=== PATIENT | female | born 1995 | race Caucasian/White ===

== ENCOUNTER → 2017-12-25 21:05 | Outpatient (CLI) | payer MEDICAID, SELFPAY | PROVIDERS: Visit Provider Obstetrics & Gynecology | DX: R30.0 Dysuria (principal); R35.0 Frequency of micturition; R39.15 Urgency of urination | CPT/HCPCS: 87077; 87086; 87088; 87186 ==

== ENCOUNTER 2018-01-02 17:15 | Outpatient (CLI) | payer MEDICAID, SELFPAY ==
[2018-01-02 17:41] VITALS: BMI 45.1
[2018-01-02] MEDS: Acetaminophen 500 MG Tablet 1000 MG PO (18:38)
[2018-01-02] MEDS: 0.9% NaCl Peripheral Flush Adult/Peds IV (18:39)
--- NOTE | 2018-01-03 07:52 | OB.TRI.HP_ITS ---
History of Present Illness Date of Service: 01/02/18 Was patient seen by the physician?: No Reason For Visit: DECREASED MOVEMENT Date of Service: 01/02/18 Final KALLIE: 04/02/18 Gestational age: 27 Weeks and 1 Days History of Present Illness: 22 yo female at 27 1/7 wk presents for NST and evaluation after noting a bruise on abdomen (struck by resident's wheelchair at work -- assisted -- earlier in day) AND also C/O decreased to no movement noted. States some cramping noted beginning at 1600. States currently being treated for a bladder infection also. O negative blood type. Home Medications Medication Instructions Recorded Prenatabs FA 1 tab PO DAILY 01/02/18 Allergies amoxicillin [From Augmentin] Allergy (Verified 01/02/18 18:00) Rash clavulanic acid [From Augmentin] Allergy (Verified 01/02/18 18:00) Rash peanut Allergy (Verified 01/02/18 18:02) Other states she had an off brand of peanut butter once that made her throat feel funny but does not avoid peanuts or peanut butter Physical Exam Cervix Dilation (cm): 0 Station: -3 Effacement (%): 0 NST - FHR Rate Baby A Baseline: 130-140 for most some 150s with accels to 165 Variability:: Minimal Accelerations:: 15 x 15 Decelerations:: None NST Reactive:: Yes, Appropriate for gestational age FHR Category:: Category I Uterine Activity:: rare UC noted. Impression/Plan 27 1/7 wk s/p abdominal trauma, abrasion to abdominal skin NST reactive, reassuring No regular UCs O negative Antibody screen negative. RhoGAM 300 mcg IM x one given RTO as planned for next ofc visit Tylenol for pain. Comfort measures for skin and abdominal wall/ muscle pain.
== END 2018-01-02 21:50 | disposition home or self-care (01) ==
LOC: WPOUT 17:40 → WP 17:40
PROVIDERS: Visit Provider Obstetrics & Gynecology
DX: O26.892 Other specified pregnancy related conditions, second trimester (principal); S30.811A Abrasion of abdominal wall, initial encounter; W20.8XXA Other cause of strike by thrown, projected or falling object, initial encounter; Y93.89 Activity, other specified; Y92.129 Unspecified place in nursing home as the place of occurrence of the external cause; Y99.0 Civilian activity done for income or pay; Z3A.27 27 weeks gestation of pregnancy
CPT/HCPCS: 36415; 59025; 59050; 85461; 86850; 86900; 90384; 96372; 99218; A4216; G0378; J2790

== ENCOUNTER → 2018-01-08 13:04 | Outpatient (CLI) | payer MEDICAID, SELFPAY ==
[2018-01-08 15:50] LABS: Hematocrit 35.2 % (37-47); Hemoglobin 12.4 g/dl (12.0-15.0); Mean Corp Hgb Conc 35.2 g/gl (32-36); Mean Corpuscular Hgb 30.6 pg (27.0-32.0); Mean Corpuscular Volume 86.9 fL (81-99); Mean Platelet Vol. 9.8 fl (6.2-12.0); Platelet Count 224 K/mm3 (150-450); RBC Distribution Width CV 13.1 % (11.6-14.6); RBC Distribution Width SD 40.2 fl (35.1-43.9); Red Blood Count 4.05 M/mm3 (4.2-5.4); White Blood Count 9.8 K/mm3 (4.4-11.0)
[2018-01-08 15:57] LABS: Glucose Challenge Gest 1H 50g 106 mg/dL (70-140)
[2018-01-08 16:32] LABS: Scan Indicated on CBC? Y/N NO
== END ==
PROVIDERS: Visit Provider Obstetrics & Gynecology
DX: Z34.83 Encounter for supervision of other normal pregnancy, third trimester (principal)
CPT/HCPCS: 36415; 82950; 85027

== ENCOUNTER 2018-01-17 07:30 | Outpatient (CLI) | payer MEDICAID, SELFPAY ==
[2018-01-17 07:55] VITALS: BMI 44.4
[2018-01-17] MEDS: Dextrose 5%-Lactated Ringers 1,000 ML 500 ML IV (08:45)
[2018-01-17] MEDS: proMETHazine 25 MG/ML Syringe 12.5 MG IV (08:45)
[2018-01-17 08:53] LABS: Hemoglobin 12.5 g/dl (12.0-15.0); Mean Corp Hgb Conc 33.8 g/gl (32-36); Mean Corpuscular Hgb 29.7 pg (27.0-32.0); Mean Corpuscular Volume 87.9 fL (81-99); Mean Platelet Vol. 9.3 fl (6.2-12.0); Platelet Count 214 K/mm3 (150-450); RBC Distribution Width CV 13.5 % (11.6-14.6); RBC Distribution Width SD 43.2 fl (35.1-43.9); Red Blood Count 4.21 M/mm3 (4.2-5.4); Scan Indicated on CBC? Y/N NO; White Blood Count 8.6 K/mm3 (4.4-11.0)
[2018-01-17 09:10] LABS: ALB/GLOB Ratio 0.8 RATIO (0.9-2.4); AST(SGOT) 17 U/L (15-37); Alanine Aminotransfer ALT/SGPT 17 U/L (13-56); Alkaline Phosphatase 66 U/L (45-117); Anion Gap 10 (5-15); BUN 6 mg/dL (7-18); BUN/Creat Ratio 11.4 RATIO (10-20); Calcium,Total 8.7 mg/dL (8.5-10.1); Chloride 107 mmol/L (98-107); Creatinine, Serum 0.53 mg/dL (0.55-1.02); EST Glomerular Filtration Rate 152 mL/min (>60); Est Glom Filt Rate - Afr Amer 184 mL/min (>60); Estimated Creatinine Clearance 142.56 ml/min; Globulin 3.8 g/dL (2.2-4.2); Glucose 87 mg/dL (74-106); Potassium 3.9 mmol/L (3.5-5.1); Protein, Total 6.8 g/dL (6.4-8.2); Sodium Level 139 mmol/L (136-145)
[2018-01-17] MEDS: Dextrose 5%-Lactated Ringers 1,000 ML 200 ML IV (10:15)
--- NOTE | 2018-01-17 13:27 | OB.TRI.NOTE ---
History of Present Illness Date of Service: 01/17/18 Was patient seen by the physician?: Yes Reason For Visit: DECREASED MOVEMENT, N/V/D Date of Service: 01/17/18 Final KALLIE: 04/02/18 Final KALLIE Source: US <20 weeks Gestational age: 29 Weeks and 2 Days History of Present Illness: 22 yo female at 29 2/7 wk with h/o prior C/S delivery. called to state Dec to no FM since last night. Also then c/o N/V/D and not able to tolerate much since last pm. Stayed home from work today and called in with concerns Advised to come in for evaluation and EFM. ADDENDUM: S/O also states diarrhea since eating [employer]. Home Medications Medication Instructions Recorded Prenatabs FA 1 tab PO DAILY 01/02/18 Allergies amoxicillin [From Augmentin] Allergy (Verified 01/02/18 18:00) Rash clavulanic acid [From Augmentin] Allergy (Verified 01/02/18 18:00) Rash peanut Allergy (Verified 01/02/18 18:02) Other states she had an off brand of peanut butter once that made her throat feel funny but does not avoid peanuts or peanut butter NST - FHR Rate Baby A Baseline: 130-140s avg variability. Accels to 160-170 Variability:: Moderate Accelerations:: 15 x 15 Decelerations:: Variable - quick , lasting less than 10 sec , to 120s NST Reactive:: Yes, Appropriate for gestational age FHR Category:: Category I Uterine Activity:: Rare, irregular UCs noted Impression/Plan 29 2/7 wk EGA DEC FM -- NST reassuring and reactive, appropriate for EGA N/V/D -- likely viral gastroenteritis with onset yesterday -- Labs: CBC wnl, and CMP wnl for with K+ wnl IV fluids for hydration, IV antiemetics Imodium for diarrhea and related cramping. Continue with plan of care until worst of sx resolves and able to tolerate po
[2018-01-17] MEDS: Loperamide 2 MG Capsule PO (13:59)
[2018-01-17 14:13] LABS: Bacteria 0 SEEN /hpf (None Seen); Mucous, Urine 0 SEEN /hpf (<or=2+); Red Blood Cells-Urine 0 SEEN /hpf (0-5)
[2018-01-17 14:16] LABS: Color, Urine Yellow (Yellow); Glucose, Dipstick Normal (Normal); Ketone-Dipstick Negative (Negative); Leukocyte Esterase-Dipstick Negative /ul (Negative); Nitrite-Dipstick Negative (Negative); Occult Blood-Urine Negative /ul (Negative); Protein-Dipstick Negative (Negative); Specific Gravity, Urine 1.015 (1.002-1.030); Urine Bilirubin Dipstick Negative (Negative); Urine Clarity Clear (Clear); Urine Urobilinogen Normal (Normal); Urine pH 6.5 (5.0 - 8.0)
[2018-01-17 14:21] LABS: Squamous Epithelial Cells - UA 0-5 SEEN /hpf (5-10); White Blood Cells 0-5 SEEN /hpf (0-5)
== END 2018-01-17 16:20 | disposition home or self-care (01) ==
LOC: WPOUT 07:36 → WP 07:37
PROVIDERS: Visit Provider Obstetrics & Gynecology
DX: O36.8130 Decreased fetal movements, third trimester, not applicable or unspecified (principal); Z3A.29 29 weeks gestation of pregnancy
CPT/HCPCS: 96361; 96374; 59025; 59050; 80053; 81001; 85027; 99218; G0378

== ENCOUNTER → 2018-02-02 16:13 | Outpatient (CLI) | payer MEDICAID, SELFPAY | PROVIDERS: Visit Provider Obstetrics & Gynecology | DX: R19.7 Diarrhea, unspecified (principal) | CPT/HCPCS: 87493 ==

== ENCOUNTER 2018-02-11 20:20 | Outpatient (CLI) | payer MEDICAID, SELFPAY ==
[2018-02-11 20:31] VITALS: BMI 45.5
[2018-02-11] MEDS: 0.9% Saline Lock 10 ML Syringe IV (21:00)
[2018-02-11 21:20] LABS: Red Blood Cells-Urine 0 SEEN /hpf (0-5)
[2018-02-11 21:21] LABS: Hematocrit 35.2 % (37-47); Hemoglobin 12.2 g/dl (12.0-15.0); Mean Corp Hgb Conc 34.7 g/gl (32-36); Mean Corpuscular Volume 86.5 fL (81-99); Mean Platelet Vol. 9.4 fl (6.2-12.0); Platelet Count 221 K/mm3 (150-450); RBC Distribution Width CV 13.5 % (11.6-14.6); RBC Distribution Width SD 42.7 fl (35.1-43.9); Red Blood Count 4.07 M/mm3 (4.2-5.4); Scan Indicated on CBC? Y/N NO; White Blood Count 9.3 K/mm3 (4.4-11.0)
[2018-02-11 21:22] LABS: Color, Urine Yellow (Yellow); Glucose, Dipstick Normal (Normal); Ketone-Dipstick 5 mg/dl (Negative); Leukocyte Esterase-Dipstick 25 /ul (Negative); Nitrite-Dipstick Negative (Negative); Occult Blood-Urine 10 /ul (Negative); Protein-Dipstick Negative (Negative); Urine Bilirubin Dipstick Negative (Negative); Urine Clarity Cloudy (Clear); Urine Urobilinogen Normal (Normal); Urine pH 6.5 (5.0 - 8.0)
[2018-02-11 21:36] LABS: Yeast-Urine 1+ /hpf (None Seen)
[2018-02-11 21:37] LABS: Mucous, Urine RARE /hpf (<or=2+)
[2018-02-11 21:38] LABS: Squamous Epithelial Cells - UA 5-10 SEEN /hpf (5-10); White Blood Cells 5-10 SEEN /hpf (0-5)
[2018-02-11 21:39] LABS: Bacteria 1+ /hpf (None Seen)
[2018-02-11] MEDS: proMETHazine 25 MG Tablet PO (21:41)
[2018-02-11] MEDS: Acetaminophen/Butalbital/Caffe 1 Tablet 2 TABLET PO (21:41)
[2018-02-11 21:57] LABS: ALB/GLOB Ratio 0.7 RATIO (0.9-2.4); AST(SGOT) 21 U/L (15-37); Alanine Aminotransfer ALT/SGPT 19 U/L (13-56); Albumin, Serum 2.9 g/dL (3.2-5.0); Alkaline Phosphatase 93 U/L (45-117); Anion Gap 9 (5-15); BUN 10 mg/dL (7-18); BUN/Creat Ratio 17.2 RATIO (10-20); Calcium,Total 8.8 mg/dL (8.5-10.1); Chloride 108 mmol/L (98-107); Creatinine, Serum 0.58 mg/dL (0.55-1.02); EST Glomerular Filtration Rate 136 mL/min (>60); Est Glom Filt Rate - Afr Amer 164 mL/min (>60); Estimated Creatinine Clearance 129.15 ml/min; Glucose 92 mg/dL (74-106); Potassium 3.4 mmol/L (3.5-5.1); Protein, Total 6.9 g/dL (6.4-8.2); Sodium Level 139 mmol/L (136-145)
--- NOTE | 2018-02-12 08:08 | OB.TRI.NOTE ---
History of Present Illness Date of Service: 02/11/18 Was patient seen by the physician?: Yes Reason For Visit: HEADACHE Date of Service: 02/11/18 Final KALLIE: 04/02/18 Final KALLIE Source: US <20 weeks Gestational age: 32 Weeks and 6 Days History of Present Illness: 23yo female t 32 6/7 wk EGA presents with PRIDE. States PRIDE present for FOUR DAYS. Called in on 02/10/18 with CC of PRIDE and given RX for fioricet Took that and slept Sat night. Called in on 02/11/18 with CC of PRIDE that came on later in day. Was gone when she got up... Advised to take Fioricet and to stay well hydrated then. Presents then at 8-9 pm with CC of PRIDE. States last dose of Fioricet at approx 1500 today . Has not taken any more as concerned she had taken too much. No BP problems this , and h/o prior term delivery by C/S. Also c/o edema of feet, upper abdominal pain, blurry vision, etc. Advised nurse that although BP wnl: needs bloodwork for PIH and UA. Home Medications Medication Instructions Recorded Prenatabs FA 1 tab PO DAILY 01/02/18 Acetaminophen/Butalbital/Caffe 1 - 2 tablet PO Q4H PRN PRN 02/11/18 [Fioricet] Allergies amoxicillin [From Augmentin] Allergy (Verified 01/02/18 18:00) Rash clavulanic acid [From Augmentin] Allergy (Verified 01/02/18 18:00) Rash peanut Allergy (Verified 01/02/18 18:02) Other states she had an off brand of peanut butter once that made her throat feel funny but does not avoid peanuts or peanut butter Physical Exam Vitals: BP 132/83 General: Alert, Oriented x3, Cooperative, No apparent distress Abdomen: Gravid Extremities:: Other - Tr edema bilateral ankles. NST - FHR Rate Baby A Baseline: 120-130s with mod variability. accels to 160s Variability:: Moderate Accelerations:: 15 x 15 Decelerations:: None NST Reactive:: Yes, Appropriate for gestational age FHR Category:: Category I Uterine Activity:: irregular UCs, irritability. Impression/Plan 32 6/7 wk EGA . CC of PRIDE PIH labs all WNL, and no proteinuria PRIDE bitemporal and nuchal/occipital Fioricet and phenergan given. States still not feeling well. Offered OxyIR but with understanding re potential 5 d stay for infant after with ARNOL scoring Declined narcotic Home. Benadryl and rest Reviewed comfort measures for possible stress PRIDE and musculoskeletal source of PRIDE. RTO for ofc appt as scheduled on 02/12/18
== END 2018-02-11 22:17 | disposition home or self-care (01) ==
LOC: WPOUT 20:25 → WP 20:26
PROVIDERS: Visit Provider Obstetrics & Gynecology
DX: O26.893 Other specified pregnancy related conditions, third trimester (principal); R51 Headache; Z3A.32 32 weeks gestation of pregnancy
CPT/HCPCS: 36415; 59025; 59050; 80053; 81001; 85027; 87077; 87086; 87088; 87186; 99218; A4216; G0378

== ENCOUNTER → 2018-03-05 16:37 | Outpatient (CLI) | payer MEDICAID, SELFPAY ==
--- NOTE | 2018-03-05 16:37 | DT_ITS ---
This patient was seen during an EMR downtime February 26, 2018 - March 05, 2018. This patient may have a combination of paper and electronic documentation or all paper documentation. All documentation is viewable within the e-chart portion of codetag for each patient visit.
[2018-03-05 19:08] LABS: Group B Strep DNA By PCR POSITIVE (Negative); Probe Check PASS
== END ==
PROVIDERS: Visit Provider Obstetrics & Gynecology
DX: Z36.85 Encounter for antenatal screening for Streptococcus B (principal)
CPT/HCPCS: 87653

== ENCOUNTER → 2018-03-13 16:40 | Outpatient (CLI) | payer MEDICAID, SELFPAY ==
[2018-03-13 17:19] LABS: Hematocrit 36.7 % (37-47); Hemoglobin 12.6 g/dl (12.0-15.0); Mean Corp Hgb Conc 34.3 g/gl (32-36); Mean Corpuscular Hgb 29.8 pg (27.0-32.0); Mean Corpuscular Volume 86.8 fL (81-99); Mean Platelet Vol. 10.1 fl (6.2-12.0); Platelet Count 228 K/mm3 (150-450); RBC Distribution Width CV 13.8 % (11.6-14.6); Red Blood Count 4.23 M/mm3 (4.2-5.4); White Blood Count 8.7 K/mm3 (4.4-11.0)
[2018-03-13 17:20] LABS: Scan Indicated on CBC? Y/N NO
[2018-03-13 17:32] LABS: International Normalized Ratio 0.9; Partial Thromboplast Time 27.3 Seconds (24.1-36.2); Prothrombin Time (Protime)PT. 12.6 SECONDS (11.7-14.9)
[2018-03-13 17:54] LABS: AST(SGOT) 29 U/L (15-37); Alanine Aminotransfer ALT/SGPT 26 U/L (13-56); Uric Acid 5.1 mg/dL (2.6-6.0)
== END ==
PROVIDERS: Visit Provider Obstetrics & Gynecology
DX: O13.9 Gestational [pregnancy-induced] hypertension without significant proteinuria, unspecified trimester (principal); Z3A.00 Weeks of gestation of pregnancy not specified
CPT/HCPCS: 36415; 84450; 84460; 84550; 85027; 85610; 85730

== ENCOUNTER → 2018-03-15 09:32 | Outpatient (CLI) | payer MEDICAID, SELFPAY ==
[2018-03-15 10:08] LABS: Microalbumin,Random Urine 8.3 mg/L (NO RANGE EST.); Microalbumin:Creatinine Ratio 11.1 mg/g CRE (<30 mg/g CRE)
[2018-03-15 12:58] LABS: 24HR. UA Prot. Total Volume 2250 mL; Urine Protein (24 Hour) 15.2 mg/dL (<11.9)
== END ==
PROVIDERS: Visit Provider Obstetrics & Gynecology
DX: O24.419 Gestational diabetes mellitus in pregnancy, unspecified control (principal); Z3A.00 Weeks of gestation of pregnancy not specified
CPT/HCPCS: 81050; 82043; 82570; 84156

== ENCOUNTER 2018-03-18 04:10 | Inpatient (IN) | payer MEDICAID, SELFPAY ==
[2018-03-18] VITALS (33 sets, daily range): BP systolic 104–156; BP diastolic 51–140; PULSE 72–106; RESP 14–24; TEMP 35.6–37.2; O2SAT 95–100; BMI 47.1
[2018-03-18 01:11] LABS: Bacteria 0 SEEN /hpf (None Seen); Mucous, Urine 0 SEEN /hpf (<or=2+); Red Blood Cells-Urine 0 SEEN /hpf (0-5); White Blood Cells 0 SEEN /hpf (0-5)
[2018-03-18 01:13] LABS: Hematocrit 35.6 % (37-47); Hemoglobin 12.5 g/dl (12.0-15.0); Mean Corp Hgb Conc 35.1 g/gl (32-36); Mean Corpuscular Hgb 30.3 pg (27.0-32.0); Mean Corpuscular Volume 86.2 fL (81-99); Mean Platelet Vol. 10.7 fl (6.2-12.0); Platelet Count 228 K/mm3 (150-450); RBC Distribution Width CV 13.5 % (11.6-14.6); RBC Distribution Width SD 41.5 fl (35.1-43.9); Red Blood Count 4.13 M/mm3 (4.2-5.4); Scan Indicated on CBC? Y/N NO; White Blood Count 10.6 K/mm3 (4.4-11.0)
[2018-03-18 01:15] LABS: Color, Urine Yellow (Yellow); Glucose, Dipstick Normal (Normal); Ketone-Dipstick Negative (Negative); Leukocyte Esterase-Dipstick Negative /ul (Negative); Nitrite-Dipstick Negative (Negative); Occult Blood-Urine Negative /ul (Negative); Protein-Dipstick Negative (Negative); Urine Bilirubin Dipstick Negative (Negative); Urine Clarity Clear (Clear); Urine Urobilinogen Normal (Normal)
[2018-03-18 01:22] LABS: Protein, Urine (Random) 15.9 mg/dL (<11.9); Protein:Creat Ratio 219 mg/g CRE (0-200)
[2018-03-18 01:23] LABS: Squamous Epithelial Cells - UA 5-10 SEEN /hpf (5-10)
[2018-03-18 01:28] LABS: ALB/GLOB Ratio 0.7 RATIO (0.9-2.4); AST(SGOT) 23 U/L (15-37); Alanine Aminotransfer ALT/SGPT 21 U/L (13-56); Albumin, Serum 2.7 g/dL (3.2-5.0); Alkaline Phosphatase 144 U/L (45-117); Anion Gap 9 (5-15); BUN 11 mg/dL (7-18); BUN/Creat Ratio 19.7 RATIO (10-20); Calcium,Total 8.6 mg/dL (8.5-10.1); Chloride 108 mmol/L (98-107); Creatinine, Serum 0.56 mg/dL (0.55-1.02); EST Glomerular Filtration Rate 142 mL/min (>60); Est Glom Filt Rate - Afr Amer 172 mL/min (>60); Globulin 3.9 g/dL (2.2-4.2); Glucose 88 mg/dL (74-106); Protein, Total 6.6 g/dL (6.4-8.2); Sodium Level 139 mmol/L (136-145); Uric Acid 5.5 mg/dL (2.6-6.0)
[2018-03-18] MEDS: Metoclopramide 10 MG/2 ML Vial IV (02:12)
[2018-03-18] MEDS: Lactated Ringers 1,000 ML 999 ML IV (02:15)
--- NOTE | 2018-03-18 02:24 | PCM.HPOB.BLA ---
- Problem List (1) 37 weeks gestation of Status: Acute (2) Pre-eclampsia in third trimester Status: Acute History and Physical Date of Admission: 03/18/18 Date: 03/18/2018 Name: SWATHI CONROY Age: 23 Date of : 1995 Swathi Conroy, a 23 year old female G2 P 1 0 0 1 -- presents with c/o severe headache, vision changes and abdominal pain at 37 6/7wga (KALLIE 04/02/18 by LMP c/w first trimester US). She has had elevated blood pressures in the office this past week with labs. Labs included 342mg of protein in a 24h urine collection. Patient awoke with headache in morning 03/17 and it was not relieved with 2 Fiorecet taken in the evening. + contractions. Fetus is active. Denies leaking of fluid or vaginal bleeding. Denies illicit drug use. +nausea without vomiting. + swelling with left leg pain. She sees purple spots. Denies prior h/o migraines outside of . She has h/o prior section for non-reassuring heart rate tracing without other complication. She plans for repeat section. Infections - Scarlet Fever Illnesses - epilepsy - last seizure as a child, Heart murmur, depression Accidents - None Hospitalizations - see surgery SURGICAL HISTORY: 1. 09/16/2008 (R) Wrist Surgery ; - 2. 08/25/2008 Eye Surgery ; - 3. 06/26/1999 T and A ; - 4. 12/27/2011 [place] Teeth Removal ; Dr. Bradshaw - 5. 09/14/2012 primary ; Marcia Fournier M.D. - MEDICATIONS HISTORY: Current medications prescribed by our practice are: 1. azithromycin 250 mg tablet, 2 po today then 1 po daily until gone - completeted 2. [id number] 50 mg-325 mg-40 mg tablet, one or two tabs PO every 6 hours as needed for headache 3. Flagyl 500 mg tablet, 1 po bid for 7 d - completed 4. 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 Spouse-Sig Other Phone No - [phone] Children Name(s) - Alan Control - FAMILY HISTORY: Mother: Heart Disease. Sister: Mentally Challenged. MENSTRUAL HISTORY: LMP Known?- Approximate-Month KnownAmount/Duration - 2-3 days, Regularity - Regular, Frequency - monthly days, LMP - 06/26/17, Age Onset Menarche - 12 PAST PREGNANCIES: Total Pregnancies - 2; Full Term Pregnancies - 1; Premature - 0; Abortions, Induced - 0; Abortions, Spontaneous - 0; Ectopics - 0; Multiple Births - 0; Living Children - 1 G1 - 08/2012 - MALE, section - 6lb 7 oz PHYSICAL EXAM BP- 126-140/76-93 P 88 R 22 T 35.6 C Weight- 271.40938 lbs Height- 61 inch BMI:47.1 CONSTITUTIONAL - NAD, well nourished, and well developed SKIN - No rash, lesions, or ulcers HEENT - Normocephalic, PERRLA, EOMI LUNGS - CTA x2 without wheezes, crackles or rales CARDIAC - Regular rate and rhythm without rubs, murmurs, or gallops ABDOMEN - obese, Without hepatosplenomegaly, distention, masses, rebound, or guarding; normal bowel sounds; no hernias EXTREMITIES - +2 b/l LE edema with no calf tenderness, however, + Jenna's sign on left. No palpable cords present, no change in temperature. NEUROLOGICAL - Cranial nerves II-XII grossly intact, + 2 b/l LE DTRs, brisk, no clonus PSYCHIATRIC - A and O to time, place, person, mood and affect External Genitial Vagina - non-tender without lesions Urethra/Urethral Meatus - non-tender Bladder - non-tender Vagina - vaginal cazares are pink and moist without loss of rugae and no evidence of atropy Cervix - without cervical motion tenderness and has normal size and features without evident lesions Uterus - 38w size Adnexa - unable to assess due to advanced gestation FHR - 140, moderate variability, + accelerations, no decelerations TOCO - 2/ 10 min SVE closed/long/high per RN exam Labs 08/09/17 GC/CT neg 08/25/2017 O NEG, Ab negative RPR nonreactive Rubella equivocal HIV negative HCV Ab negative HBsAg neg 03/05/2018 GBS positive 03/18/18 03/18/18 03/18/18 00:50 00:50 00:55 WBC 10.6 RBC 4.13 L Hgb 12.5 Hct 35.6 L MCV 86.2 MCH 30.3 MCHC 35.1 RDW 13.5 RDW Differential 41.5 Plt Count 228 MPV 10.7 Sodium 139 Potassium 4.0 Chloride 108 H Carbon Dioxide 22.0 Anion Gap 9 BUN 11 Creatinine 0.56 Est GFR (MDRD) Af Amer 172 Est GFR (MDRD) Non-Af 142 BUN/Creatinine Ratio 19.7 Glucose 88 Uric Acid 5.5 Calcium 8.6 Total Bilirubin 0.20 AST 23 ALT 21 Alkaline Phosphatase 144 H Total Protein 6.6 Albumin 2.7 L Globulin 3.9 Albumin/Globulin Ratio 0.7 L Urine Color Urine Clarity Urine pH Ur Specific [place] Urine Protein Urine Glucose (UA) Urine Ketones Urine Occult Blood Urine Nitrite Urine Bilirubin Urine Urobilinogen Ur Leukocyte Esterase Urine RBC Urine WBC Ur Squamous Epith Cells Urine Bacteria Urine Mucus U Random Total Protein 15.9 H Urine Creatinine 72.50 Protein/Creatinin Ratio 219 H 03/18/18 00:55 WBC RBC Hgb Hct MCV MCH MCHC RDW RDW Differential Plt Count MPV Sodium Potassium Chloride Carbon Dioxide Anion Gap BUN Creatinine Est GFR (MDRD) Af Amer Est GFR (MDRD) Non-Af BUN/Creatinine Ratio Glucose Uric Acid Calcium Total Bilirubin AST ALT Alkaline Phosphatase Total Protein Albumin Globulin Albumin/Globulin Ratio Urine Color Yellow Urine Clarity Clear Urine pH 7.0 Ur Specific [place] 1.010 Urine Protein Negative Urine Glucose (UA) Normal Urine Ketones Negative Urine Occult Blood Negative Urine Nitrite Negative Urine Bilirubin Negative Urine Urobilinogen Normal Ur Leukocyte Esterase Negative Urine RBC 0 SEEN Urine WBC 0 SEEN Ur Squamous Epith Cells 5-10 SEEN Urine Bacteria 0 SEEN Urine Mucus 0 SEEN U Random Total Protein Urine Creatinine Protein/Creatinin Ratio Bedside US - fetus cephalic, active with FADUMO 5cm, placenta unable to be visualized well due to body habitus and not seen anteriorly or fundally Assessment: 37 weeks gestation Preeclampsia with severe features, affecting third trimester Plan: I reviewed office BPs and labs. Elevated BPs and proteinuria consistent with preeclampsia and headache refractory to Fiorecet concerning for severe features. Serum labs do not suggest hepatic or renal dysfunction or HELLP syndrome. I discussed with patient my concerns and reviewed with her the significance of preeclampsia and its severity. We discussed potential sequela including risk for severe range blood pressures, stroke, seizure, hepatic failure, renal failure, coagulopathy, maternal and or . I advised proceeding with delivery. She is not currently in labor and her cervix is unfavorable, thus I recommended repeat section as planned. We did discuss at length the risks, benefits, indications of section. Risks reviewed included pain, bleeding, hemorrhage possibly requiring blood transfusion or hysterectomy, bowel injury, bladder injury, venous thromboembolism, infection possibly including wound or uterine infection or sepsis, scarring, nerve injury, laceration, transient tachypnea of the . Given the severity of her symptoms I did order IV Reglan IV for headache relief. If no improvement of headache will consider CT of the head. IV magnesium also ordered for seizure prophylaxis. I reviewed the indication with the patient as well as potential side effects including respiratory depression. Patient and her spouse were given an opportunity to ask questions and questions were answered to their satisfaction. The patient indicated she did not desire sterilization at the time of her section. Consents were signed. Blood transfusion was acceptable if medically necessary. Will order left lower extremity Doppler following surgery. Cat I FHR - status reassuring at this time.
--- NOTE | 2018-03-18 02:44 | HP.PCM_ITS ---
- Problem List (1) 37 weeks gestation of Status: Acute (2) Pre-eclampsia in third trimester Status: Acute History and Physical Date of Admission: 03/18/18 Date: 03/18/2018 Name: SWATHI CONROY Age: 23 Date of : 1995 Swathi Conroy, a 23 year old female G2 P 1 0 0 1 -- presents with c/o severe headache, vision changes and abdominal pain at 37 6/ 7wga (KALLIE 04/02/18 by LMP c/w first trimester US). She has had elevated blood pressures in the office this past week with labs. Labs included 342mg of protein in a 24h urine collection. Patient awoke with headache in morning 03/17 and it was not relieved with 2 Fiorecet taken in the evening. + contractions. Fetus is active. Denies leaking of fluid or vaginal bleeding. Denies illicit drug use. +nausea without vomiting. + swelling with left leg pain. She sees purple spots. Denies prior h/o migraines outside of . She has h/o prior section for non-reassuring heart rate tracing without other complication. She plans for repeat section. Infections - Scarlet Fever Illnesses - epilepsy - last seizure as a child, Heart murmur, depression Accidents - None Hospitalizations - see surgery SURGICAL HISTORY: 1. 09/16/2008 (R) Wrist Surgery ; - 2. 08/25/2008 Eye Surgery ; - 3. 06/26/1999 T and A ; - 4. 12/27/2011 [place] Teeth Removal ; Dr. Bradshaw - 5. 09/14/2012 primary ; Marcia Fournier M.D. - MEDICATIONS HISTORY: Current medications prescribed by our practice are: 1. azithromycin 250 mg tablet, 2 po today then 1 po daily until gone - completeted 2. rwzhnwqubr-zhimfok-[id number] 50 mg-325 mg-40 mg tablet, one or two tabs PO every 6 hours as needed for headache 3. Flagyl 500 mg tablet, 1 po bid for 7 d - completed 4. 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 Sister: Mentally Challenged. MENSTRUAL HISTORY: LMP Known?- Approximate-Month KnownAmount/Duration - 2-3 days , Regularity - Regular, Frequency - monthly days, LMP - 06/26/17, Age Onset Menarche - 12 PAST PREGNANCIES: Total Pregnancies - 2; Full Term Pregnancies - 1; Premature - 0; Abortions, Induced - 0; Abortions, Spontaneous - 0; Ectopics - 0; Multiple Births - 0; Living Children - 1 G1 - 08/2012 - MALE, section - 6lb 7 oz PHYSICAL EXAM BP- 126-140/76-93 P 88 R 22 T 35.6 C Weight- 271.90169 lbs Height- 61 inch BMI:47.1 CONSTITUTIONAL - NAD, well nourished, and well developed SKIN - No rash, lesions, or ulcers HEENT - Normocephalic, PERRLA, EOMI LUNGS - CTA x2 without wheezes, crackles or rales CARDIAC - Regular rate and rhythm without rubs, murmurs, or gallops ABDOMEN - obese, Without hepatosplenomegaly, distention, masses, rebound, or guarding; normal bowel sounds; no hernias EXTREMITIES - +2 b/l LE edema with no calf tenderness, however, + Jenna's sign on left. No palpable cords present, no change in temperature. NEUROLOGICAL - Cranial nerves II-XII grossly intact, + 2 b/l LE DTRs, brisk, no clonus PSYCHIATRIC - A and O to time, place, person, mood and affect External Genitial Vagina - non-tender without lesions Urethra/Urethral Meatus - non-tender Bladder - non-tender Vagina - vaginal cazares are pink and moist without loss of rugae and no evidence of atropy Cervix - without cervical motion tenderness and has normal size and features without evident lesions Uterus - 38w size Adnexa - unable to assess due to advanced gestation FHR - 140, moderate variability, + accelerations, no decelerations TOCO - 2/ 10 min SVE closed/long/high per RN exam Labs 08/09/17 GC/CT neg 08/25/2017 O NEG, Ab negative RPR nonreactive Rubella equivocal HIV negative HCV Ab negative HBsAg neg 03/05/2018 GBS positive 03/18/18 03/18/18 03/18/18 00:50 00:50 00:55 WBC 10.6 RBC 4.13 L Hgb 12.5 Hct 35.6 L MCV 86.2 MCH 30.3 MCHC 35.1 RDW 13.5 RDW Differential 41.5 Plt Count 228 MPV 10.7 Sodium 139 Potassium 4.0 Chloride 108 H Carbon Dioxide 22.0 Anion Gap 9 BUN 11 Creatinine 0.56 Est GFR (MDRD) Af Amer 172 Est GFR (MDRD) Non-Af 142 BUN/Creatinine Ratio 19.7 Glucose 88 Uric Acid 5.5 Calcium 8.6 Total Bilirubin 0.20 AST 23 ALT 21 Alkaline Phosphatase 144 H Total Protein 6.6 Albumin 2.7 L Globulin 3.9 Albumin/Globulin Ratio 0.7 L Urine Color Urine Clarity Urine pH Ur Specific [place] Urine Protein Urine Glucose (UA) Urine Ketones Urine Occult Blood Urine Nitrite Urine Bilirubin Urine Urobilinogen Ur Leukocyte Esterase Urine RBC Urine WBC Ur Squamous Epith Cells Urine Bacteria Urine Mucus U Random Total Protein 15.9 H Urine Creatinine 72.50 Protein/Creatinin Ratio 219 H 03/18/18 00:55 WBC RBC Hgb Hct MCV MCH MCHC RDW RDW Differential Plt Count MPV Sodium Potassium Chloride Carbon Dioxide Anion Gap BUN Creatinine Est GFR (MDRD) Af Amer Est GFR (MDRD) Non-Af BUN/Creatinine Ratio Glucose Uric Acid Calcium Total Bilirubin AST ALT Alkaline Phosphatase Total Protein Albumin Globulin Albumin/Globulin Ratio Urine Color Yellow Urine Clarity Clear Urine pH 7.0 Ur Specific [place] 1.010 Urine Protein Negative Urine Glucose (UA) Normal Urine Ketones Negative Urine Occult Blood Negative Urine Nitrite Negative Urine Bilirubin Negative Urine Urobilinogen Normal Ur Leukocyte Esterase Negative Urine RBC 0 SEEN Urine WBC 0 SEEN Ur Squamous Epith Cells 5-10 SEEN Urine Bacteria 0 SEEN Urine Mucus 0 SEEN U Random Total Protein Urine Creatinine Protein/Creatinin Ratio Bedside US - fetus cephalic, active with FADUMO 5cm, placenta unable to be visualized well due to body habitus and not seen anteriorly or fundally Assessment: 37 weeks gestation Preeclampsia with severe features, affecting third trimester Plan: I reviewed office BPs and labs. Elevated BPs and proteinuria consistent with preeclampsia and headache refractory to Fiorecet concerning for severe features. Serum labs do not suggest hepatic or renal dysfunction or HELLP syndrome. I discussed with patient my concerns and reviewed with her the significance of preeclampsia and its severity. We discussed potential sequela including risk for severe range blood pressures, stroke, seizure, hepatic failure, renal failure, coagulopathy, maternal and or . I advised proceeding with delivery. She is not currently in labor and her cervix is unfavorable, thus I recommended repeat section as planned. We did discuss at length the risks, benefits, indications of section. Risks reviewed included pain, bleeding, hemorrhage possibly requiring blood transfusion or hysterectomy, bowel injury, bladder injury, venous thromboembolism, infection possibly including wound or uterine infection or sepsis, scarring, nerve injury, laceration, transient tachypnea of the . Given the severity of her symptoms I did order IV Reglan IV for headache relief. If no improvement of headache will consider CT of the head. IV magnesium also ordered for seizure prophylaxis. I reviewed the indication with the patient as well as potential side effects including respiratory depression. Patient and her spouse were given an opportunity to ask questions and questions were answered to their satisfaction. The patient indicated she did not desire sterilization at the time of her section. Consents were signed. Blood transfusion was acceptable if medically necessary. Will order left lower extremity Doppler following surgery. Cat I FHR - status reassuring at this time.
[2018-03-18] MEDS: Sodium Citrate/Citric Acid 30 ML UDC PO (02:45)
[2018-03-18] MEDS: Magnesium Sulfate 20 GM/500 ML BAG IV ×2 (03:00→13:06)
[2018-03-18] MEDS: Oxytocin 30 units/NS 500 ml 30 UNITS/500 ML IV.SOLN 167 UNITS IV (03:22)
--- NOTE | 2018-03-18 04:03 | PCM.OB.CSR ---
- Problem List (1) 37 weeks gestation of Status: Acute (2) Pre-eclampsia in third trimester Status: Acute Delivery Classification: SPENSER Final KALLIE: 04/02/18 Gestational age: 37 Weeks and 6 Days doctor who attended delivery (if requested by OB): Emilie Chen Indications: 23yo @ 37 6/7wga with h/o prior section with preeclampsia presented with headache, vision changes and abdominal pain. Headache was refractory to Fiorecet. She planned a repeat section and was advised to proceed with delivery. R/B/I/A were reviewed and informed consent obtained. Indications for : Repeat Elective , - - Preeclampsia, Oligohydramnios Description of Procedure: The patient was taken to the operating room and spinal analgesia was administered. She is placed in a dorsal supine position with left lateral tilt. The perineum and abdomen were prepped and draped in sterile fashion. And the spinal was found to be adequate. A Pfannenstiel incision was made using a scalpel and brought down to incise the subcutaneous tissue and rectus fascia at the midline. Subcutaneous tissue was bluntly dissected off the fascia laterally. The fascial incision was dissected laterally and cephalad using curved Lord scissors. The superior leaflet of the rectus fascia was grasped using Nico clamps and bluntly dissected and sharply dissected from the underlying rectus muscle. In a similar fashion the inferior rectus fascia was dissected from the underlying muscle. The rectus muscles were bluntly at the midline however the left rectus was significantly scarred and banded with the underlying peritoneum. The medial left rectus was incised using the Bovie allow greater access to the abdominal cavity. The peritoneum was identified and entered [sharply]. The bladder blade was placed into the abdomen and the vesicouterine peritoneal fold identified with significant scarring. The fold was incised and carefully sharply and bluntly dissected and a bladder flap created. Bladder blade was then repositioned to the abdomen. A low transverse hysterotomy was made using the [Metzenbaum scissors] to level of the membranes. The hysterotomy was extended bluntly cephalad and caudad. The membranes were then ruptured revealing clear fluid. The head was elevated and brought to the level of the hysterotomy and the delivered revealing vigorous [female] . The cord was doubly clamped and cut after 30 seconds. The was passed to awaiting [nursery personnel]. The placenta was [expressed] from the uterus and appeared intact on inspection. The uterus was cleared of debris. The hysterotomy was then repaired using 0 Vicryl running lock suture. A second imbricating layer was also placed for additional hemostasis. Marie was placed for additional hemostasis. The bladder blade was removed. The anterior cul-de-sac was cleared of debris. The peritoneum and rectus muscles were reapproximated using 2-0 Vicryl running suture. The rectus fascia was closed using 0 Vicryl running suture. The subcutaneous tissue was sponge irrigated and small capillary bleeding controlled using the Bovie device. The subcutaneous tissue was reapproximated using 2-0 Vicryl. The skin was closed using 4-0 Monocryl subcuticularly. A Mepilex occlusive dressing was placed over the incision. The fundus was firm. The patient was then transferred to the recovery room without complication. She tolerated the procedure well. Sponge, instrument, and needle counts were correct ?2. Amniotic Membrane Rupture Type: Artificial Amniotic Fluid Description: Clear Placenta Disposition: Routine to Lab Specimen(s) sent to pathology: placenta Drain: Zamarripa to straight drain Cord Entanglement: None Nuchal Cord Compression: Without compression Cord Vessel Description: 3 Vessels Esitmated Blood Loss (ml): 1000 Infant Gender: Female (1 minute): 9 (5 minute): 9 Delayed cord clamping: Yes Pre-op Antibiotic Given: - - Clindamycin 900mg IV, Gentamicin 5mg/kg x 1 IV Pt instructed on risks of surgery: Bleeding, Anesthesia Risks, Infection, Need for Future C-Sections, Injury to surrounding structure(s) including bowel and bladder Complications: None - Admit VTE Documentation VTE Present on Admission: No VTE Mechan Device Prophylaxis: SCD's VTE Pharm Prophylaxis ordered?: No
--- NOTE | 2018-03-18 04:12 | PLAC_PTH ---
PATIENT: PATRICK CONROY LOC: [facility] U#:[id number] AGE/SX: 23/F ROOM: WP014 RE03/18/[address]: Dr. Rebecca Mccain MD : [id number] BED: 1 DIS: 03/20/2018 SPEC #: [id number] RECD: 03/18/18 10:16 STATUS: GAGAN REYola #: [id number] STEVAN: 03/18/18 04:[address]: Rebecca Henderson DEPT: SURGICAL PATHOLOGY RECD BY: Wilian Najera ENTERED: 03/19/18 10:11 SP TYPE: PLACENTA OTHR DR: No Primary Care Phys Tissues: Placenta, NOS Procedures: Surgery Specimen Level V HEADER OPERATION: section PRE-OP DIAGNOSIS: Preeclampsia; history of prior section; 37 6/7wga TISSUE SUBMITTED: Placenta MICROSCOPIC DIAGNOSIS Placenta: Placental disc ? third trimester placenta (599 grams), no pathologic diagnosis. Membranes - no pathologic diagnosis. Umbilical cord ? three blood vessels, no pathologic diagnosis. SJ:marilyn 03/20/18 MICROSCOPIC DESCRIPTION Slides are reviewed. GROSS DESCRIPTION SPECIMEN: PLACENTA / CLINICAL INFORMATION: A. Weight: 2.805 kg B. Gestational Age: 37 weeks C. Sex: Female PLACENTAL WEIGHT (POST FIXATION): 599 grams PLACENTAL DIMENSIONS: 19 x 16 x 3 PLACENTAL SHAPE: Usual ovoid PLACENTAL WEIGHT FOR GESTATIONAL AGE: Within 10-99th percentile. MEMBRANES - Present A. Insertion: Marginal B. Site of rupture from edge: 5 cm from edge of placental disc C. Color of membrane: [place] D. Abnormalities: None UMBILICAL CORD - Present A. Color: [place] B. Insertion: Eccentric C. Length: 23 cm D. Diameter: 1.3 cm E. Number of vessels: Three F. Abnormalities: None PLACENTAL DISC - Present A. Color of surface: [place] B. surface abnormalities: None C. Maternal cotyledons: Intact with minimal tears D. Attached retro placental clot: No clot E. Cut surface: Dark red and spongy F. Lesions: None G. Separate clot: Absent SECTIONS SUBMITTED: 1. Membrane roll and umbilical cord ( end is inked) 2. Placental disc, and maternal surfaces 3. Placental disc, and maternal surfaces 4. Placental disc, and maternal surfaces AM:marilyn 03/19/18 TC:5 CPT: 75289
--- NOTE | 2018-03-18 05:25 | NURSING ---
0400-pt back in c/s room.
--- NOTE | 2018-03-18 05:50 | NURSING ---
8166-expressed moderate size clot pt states she is feeling a little lightheaded, explained could be d/t mag sulfate.
--- NOTE | 2018-03-18 06:43 | NURSING ---
0627-feeling headache is light and not severe 2/10. feeling clammy and light headed.
--- NOTE | 2018-03-18 07:01 | VDLE_ITS ---
Reason For Study: LEG PAIN Procedure LEFT Exam performed portable in patient room. GSV is normal. A preliminary report was called and/or faxed CFV is compressible, spontaneous, phasic, to [facility] nurse. competent, and demonstrates normal augmentation. FV is compressible, spontaneous, phasic, competent and demonstrates normal augmentation. POP V is compressible, spontaneous, phasic, competent and demonstrates normal augmentation. T/P Trunk is compressible. PTV is compressible. LT PerV is compressible. Interpretation Summary There is no evidence of left lower extremity deep vein thrombosis. Left greater saphenous vein appears patent and compressible segmentally. Ordering Physician: Rebecca Morales Referring Physician: Chance Raman Performed By: Heidi Nowak RVT
[2018-03-18] MEDS: proMETHazine 25 MG/ML Syringe 12.5 MG IV (07:51)
[2018-03-18] MEDS: Ketorolac 30 MG/ML Syringe IV ×3 (09:05→20:56)
--- NOTE | 2018-03-18 10:00 | NURSING ---
Cardio vascular at beside, doppler completed on LLE - negative
--- NOTE | 2018-03-18 10:52 | PCM.PN.OB ---
Patient Problems: Active and Suspected Problems 37 weeks gestation of (Acute) Pre-eclampsia in third trimester (Acute) Subjective: Relates headache significantly improved, now 1/. Denies vision changes and her abdominal pain resolved. She is sore. Nausea and vomiting resolved. She had LE Doppler this morning for LLE edema and pain. Objective: AVSS - Physical Exam General: Alert, Oriented x3, Cooperative, No apparent distress HEENT: Atraumatic, Normocephalic Lungs: Clear to auscultation, Normal air movement Cardiovascular: Regular rate, Regular Rhythm, Normal S1, Normal S2, No murmurs Abdomen: Soft, Non Tender, Non-Distended, Obese, - - No bowel sounds appreciated, incisional dressing c/d/i Extremities: No Calf Tenderness, - - 1+ b/l LE edema - LLE tenderness resolved, negative Jenna's Neurological: Neuro grossly intact, - - No clonus, trace b/l LE DTRs Psych/Mental Status: Normal Affect, Appropriate, Alert and oriented to time, place, person, mood and affect Vital Signs Temp Pulse Resp BP Pulse Ox 96.6 F L 82 14 125/71 H 97 03/18/18 09:00 03/18/18 09:00 03/18/18 09:00 03/18/18 09:00 03/18/18 09:00 Oxygen Delivery Method Room Air Weight: 124.5 kg Body Mass Index (BMI) 47.1 Intake and Output for Last 24 Hours 03/16/18 03/17/18 03/18/18 23:59 23:59 23:59 Intake Total 2687 / 2687 Output Total 650 / 650 Balance 2036 / 2036 Laboratory Tests Past 24 Hrs 03/18/18 03/18/18 03/18/18 00:50 00:50 00:50 WBC 10.6 RBC 4.13 L Hgb 12.5 Hct 35.6 L MCV 86.2 MCH 30.3 MCHC 35.1 RDW 13.5 RDW Differential 41.5 Plt Count 228 MPV 10.7 Sodium 139 Potassium 4.0 Chloride 108 H Carbon Dioxide 22.0 Anion Gap 9 BUN 11 Creatinine 0.56 Est GFR (MDRD) Af Amer 172 Est GFR (MDRD) Non-Af 142 BUN/Creatinine Ratio 19.7 Glucose 88 Uric Acid 5.5 Calcium 8.6 Total Bilirubin 0.20 AST 23 ALT 21 Alkaline Phosphatase 144 H Total Protein 6.6 Albumin 2.7 L Globulin 3.9 Albumin/Globulin Ratio 0.7 L Urine Color Urine Clarity Urine pH Ur Specific [place] Urine Protein Urine Glucose (UA) Urine Ketones Urine Occult Blood Urine Nitrite Urine Bilirubin Urine Urobilinogen Ur Leukocyte Esterase Urine RBC Urine WBC Ur Squamous Epith Cells Urine Bacteria Urine Mucus U Random Total Protein Urine Creatinine Protein/Creatinin Ratio Blood Type O NEGATIVE Antibody Screen NEGATIVE Screen Baby's Blood Type Baby's COLBY 03/18/18 03/18/18 03/18/18 00:55 00:55 07:25 WBC RBC Hgb Hct MCV MCH MCHC RDW RDW Differential Plt Count MPV Sodium Potassium Chloride Carbon Dioxide Anion Gap BUN Creatinine Est GFR (MDRD) Af Amer Est GFR (MDRD) Non-Af BUN/Creatinine Ratio Glucose Uric Acid Calcium Total Bilirubin AST ALT Alkaline Phosphatase Total Protein Albumin Globulin Albumin/Globulin Ratio Urine Color Yellow Urine Clarity Clear Urine pH 7.0 Ur Specific [place] 1.010 Urine Protein Negative Urine Glucose (UA) Normal Urine Ketones Negative Urine Occult Blood Negative Urine Nitrite Negative Urine Bilirubin Negative Urine Urobilinogen Normal Ur Leukocyte Esterase Negative Urine RBC 0 SEEN Urine WBC 0 SEEN Ur Squamous Epith Cells 5-10 SEEN Urine Bacteria 0 SEEN Urine Mucus 0 SEEN U Random Total Protein 15.9 H Urine Creatinine 72.50 Protein/Creatinin Ratio 219 H Blood Type Antibody Screen Screen NEGATIVE Baby's Blood Type O POSITIVE Baby's COLBY NEGATIVE Medical Necessity - Tobacco Use Smoking Status: Former smoker Assessment/Plan All Active Problems 37 weeks gestation of (Acute) Pre-eclampsia in third trimester (Acute) 23yo s/p RLTCS for preeclampsia with severe features on magnesium. -No si/sx worsening preeclampsia or magnesium toxicity. -Continue magnesium IV -LLE Doppler wnl - findings reviewed with patient -Lovenox for DVT ppx -Bottlefeeding -Encouraged incentive spirometry -Routine postop care
--- NOTE | 2018-03-18 11:32 | PCM.DCCSEC ---
Discharge Diet: No Restrictions Discharge Activity: Return to Normal Activity, May Not Drive - for 2 weeks or while taking narcotic pain meds., May not drive while taking narcotic pain medications., May Shower, - - No tub bath for 1-2 weeks May resume sexual activity in: 6 weeks Lifting Restrictions: 10 lb Call your doctor if your incision/area has: Continuous Slow Oozing, Sudden Increased Bleeding, Increased Pain/ Swelling, Increased Redness, Foul Smelling Discharge Call your doctor if you observe: Fever of 101 or Higher, Inability to urinate, Inability to have a bowel movement, Using more than one pad per hour, Shortness of breath, Chest pain, Calf discomfort, Uncontrolled pain Suture Line Care: Avoid Pulling/Pushing Remove Dressing in (days):: 3 Cleanse incision/area with: Soap & Water Additional Instructions: If you experience any of the following, contact your healthcare provider. Bleeding that soaks a pad every hour for 2 hours Fever 100.4 or higher Unrelieved incision or abdominal pain Swelling, redness, discharge or bleeding from your incision or episiotomy site Your incision begins to separate Problems urinating (including inability to urinate or burning while urinating). Visual changes Severe headache Flu-like symptoms Pain or redness in one of both of your breasts Pain, warmth, tenderness or swelling in your legs, especially the calf area Frequent nausea and vomiting Symptoms of depression or anxiety If you experience any of the following, call 911 or go to the nearest Emergency Room. Chest pain Problems breathing Seizure activity Partial or complete paralysis of a body part, slurred speech, weakness or drooping of the face, or a sudden inability to walk or hold your balance Allergies/Adverse Reactions: Allergies amoxicillin [From Augmentin] Allergy (Verified 01/02/18 18:00) Rash clavulanic acid [From Augmentin] Allergy (Verified 01/02/18 18:00) Rash peanut Allergy (Verified 01/02/18 18:02) Other states she had an off brand of peanut butter once that made her throat feel funny but does not avoid peanuts or peanut butter Medications to take at Discharge Prenatabs FA 1 tab PO DAILY 01/02/18 Ibuprofen 600 mg PO TID PRN #30 tab 03/18/18 Oxycodone [Oxyir] 1 - 2 tab PO Q4H PRN PRN 3 Days #28 tab 03/18/18 Senna/Docusate Sodium [Senokot-S] 1 - 2 tab PO DAILY PRN #60 tablet 03/18/18 The following prescriptions were given: Oxycodone [Oxyir] 1 - 2 tab PO Q4H PRN PRN 3 Days #28 tab PRN Reason: Mod-Severe Pain (4-1010) Ibuprofen 600 mg PO TID PRN #30 tab PRN Reason: Pain Follow-Up: Call to make an appointment with your doctor for an incision check in 1-2 weeks. You will also need a 6 week post- follow up appointment. Please Follow Up With: Chance Raman MD When: 7-10 days for incision and blood pressure check Please Follow Up With: Chance Raman MD When: 6 weeks for visit Primary Care Physician: Care Physician,No Primary [Primary Care Provider] -
--- NOTE | 2018-03-18 11:35 | DCINST_ITS ---
Discharge Diet: No Restrictions Discharge Activity: Return to Normal Activity, May Not Drive - for 2 weeks or while taking narcotic pain meds., May not drive while taking narcotic pain medications., May Shower, - - No tub bath for 1-2 weeks May resume sexual activity in: 6 weeks Lifting Restrictions: 10 lb Call your doctor if your incision/area has: Continuous Slow Oozing, Sudden Increased Bleeding, Increased Pain/ Swelling, Increased Redness, Foul Smelling Discharge Call your doctor if you observe: Fever of 101 or Higher, Inability to urinate, Inability to have a bowel movement, Using more than one pad per hour, Shortness of breath, Chest pain, Calf discomfort, Uncontrolled pain Suture Line Care: Avoid Pulling/Pushing Remove Dressing in (days):: 3 Cleanse incision/area with: Soap & Water Additional Instructions: If you experience any of the following, contact your healthcare provider. * Bleeding that soaks a pad every hour for 2 hours * Fever 100.4 or higher * Unrelieved incision or abdominal pain * Swelling, redness, discharge or bleeding from your incision or episiotomy site * Your incision begins to separate * Problems urinating (including inability to urinate or burning while urinating) . * Visual changes * Severe headache * Flu-like symptoms * Pain or redness in one of both of your breasts * Pain, warmth, tenderness or swelling in your legs, especially the calf area * Frequent nausea and vomiting * Symptoms of depression or anxiety If you experience any of the following, call 911 or go to the nearest Emergency Room. * Chest pain * Problems breathing * Seizure activity * Partial or complete paralysis of a body part, slurred speech, weakness or drooping of the face, or a sudden inability to walk or hold your balance Allergies/Adverse Reactions: Allergies amoxicillin [From Augmentin] Allergy (Verified 01/02/18 18:00) Rash clavulanic acid [From Augmentin] Allergy (Verified 01/02/18 18:00) Rash peanut Allergy (Verified 01/02/18 18:02) Other states she had an off brand of peanut butter once that made her throat feel funny but does not avoid peanuts or peanut butter Medications to take at Discharge Prenatabs FA 1 tab PO DAILY 01/02/18 Ibuprofen 600 mg PO TID PRN #30 tab 03/18/18 Oxycodone [Oxyir] 1 - 2 tab PO Q4H PRN PRN 3 Days #28 tab 03/18/18 Senna/Docusate Sodium [Senokot-S] 1 - 2 tab PO DAILY PRN #60 tablet 03/18/18 The following prescriptions were given: Oxycodone [Oxyir] 1 - 2 tab PO Q4H PRN PRN 3 Days #28 tab PRN Reason: Mod-Severe Pain (4-10) Ibuprofen 600 mg PO TID PRN #30 tab PRN Reason: Pain Follow-Up: Call to make an appointment with your doctor for an incision check in 1-2 weeks. You will also need a 6 week post- follow up appointment. Please Follow Up With: Chance Raman MD When: 7-10 days for incision and blood pressure check Please Follow Up With: Chance Raman MD When: 6 weeks for visit Primary Care Physician: Care Physician,No Primary [Primary Care Provider] -
[2018-03-18] MEDS: Enoxaparin 40 MG/0.4 ML Syringe SC (12:03)
[2018-03-18 12:22] LABS: Hematocrit 33.9 % (37-47); Hemoglobin 11.8 g/dl (12.0-15.0); Mean Corp Hgb Conc 34.8 g/gl (32-36); Mean Corpuscular Hgb 29.9 pg (27.0-32.0); Mean Platelet Vol. 10.4 fl (6.2-12.0); Platelet Count 220 K/mm3 (150-450); RBC Distribution Width CV 13.4 % (11.6-14.6); RBC Distribution Width SD 41.5 fl (35.1-43.9); Red Blood Count 3.94 M/mm3 (4.2-5.4); Scan Indicated on CBC? Y/N NO; White Blood Count 17.9 K/mm3 (4.4-11.0)
[2018-03-19] VITALS: BP 126/92; PULSE 82; RESP 17; TEMP 37.2
[2018-03-19 02:00] VITALS: BP 122/87; PULSE 92; RESP 18; TEMP 36.6
--- NOTE | 2018-03-19 02:49 | NURSING ---
Magnesium sulfate discontinued due to adequate urine output and lower blood pressures. Patient tolerated procedure well. Patient requesting to get up out of bed and shower. Zamarripa cath discontinued.
[2018-03-19] MEDS: Ketorolac 30 MG/ML Syringe IV ×4 (02:53→20:54)
[2018-03-19] MEDS: Prenatal Vits Tablet 1 TABLET PO (07:40)
[2018-03-19] MEDS: oxyCODONE 5 MG Tablet PO ×2 (07:40→18:50)
[2018-03-19] MEDS: Senna/Docusate Sodium 1 Tablet PO (07:41)
[2018-03-19 08:00] VITALS: BP 106/58; PULSE 88; RESP 18; TEMP 36.1
--- NOTE | 2018-03-19 08:35 | PN.OBGYN_ITS ---
Patient Problems: Active and Suspected Problems Delivery by elective section (Acute) 37 weeks gestation of (Acute) Pre-eclampsia in third trimester (Acute) Subjective: Denies headache, vision changes this morning. She is sore. OOB with no difficulty ambulating. No flatus yet. Tolerates a regular diet. Objective: AVSS - Physical Exam General: Alert, Oriented x3, Cooperative, No apparent distress HEENT: Atraumatic, Normocephalic Lungs: Clear to auscultation, Normal air movement Cardiovascular: Regular rate, Regular Rhythm, Normal S1, Normal S2 Abdomen: Bowel Sounds Present, Soft, Non Tender, Non-Distended, Obese, - - Unable to assess fundus 2/2 body habitus, lochia scant, incision with dressing c /d/i Extremities: No edema, No Calf Tenderness Neurological: Neuro grossly intact Psych/Mental Status: Normal Affect, Appropriate, Alert and oriented to time, place, person, mood and affect Vital Signs Temp Pulse Resp BP Pulse Ox 97.9 F 92 18 122/87 H 98 03/19/18 02:00 03/19/18 02:00 03/19/18 02:00 03/19/18 02:00 03/18/18 23:24 Oxygen Delivery Method Room Air Weight: 124.5 kg Body Mass Index (BMI) 47.1 Intake and Output for Last 24 Hours 03/17/18 03/18/18 03/19/18 23:59 23:59 23:59 Intake Total 6097 / 6097 1250 / 1250 Output Total 2675 / 2675 1100 / 1100 Balance 3422 / 3422 150 / 150 Laboratory Tests Past 24 Hrs 03/18/18 03/18/18 07:25 12:00 WBC 17.9 H RBC 3.94 L Hgb 11.8 L Hct 33.9 L MCV 86.0 MCH 29.9 MCHC 34.8 RDW 13.4 RDW Differential 41.5 Plt Count 220 MPV 10.4 Screen NEGATIVE Baby's Blood Type O POSITIVE Baby's COLBY NEGATIVE Medical Necessity - Tobacco Use Smoking Status: Former smoker Assessment/Plan All Active Problems Delivery by elective section (Acute) 37 weeks gestation of (Acute) Pre-eclampsia in third trimester (Acute) 23yo POD#1 s/p RLTCS for preeclampsia with severe features. -Magnesium discontinued overnight and sx of preeclampsia long resolved. -Few elevated diastolic BPs since delivery. -LLE Doppler wnl - neg for DVT - edema resolved -Lovenox for DVT ppx -Bottlefeeding -Regular diet -Routine postop care
--- NOTE | 2018-03-19 08:36 | DS.PCM_ITS ---
Discharge Date and Diagnosis Date of Admission: 03/18/18 Date of Discharge: 03/20/18 - Primary Discharge Diagnosis Active and Suspected Problems Delivery by elective section (Acute) 37 weeks gestation of (Acute) Pre-eclampsia in third trimester (Acute) Hospital Course and Treatment Operations: - - section Procedures: - - Left lower extremity Doppler - negative for DVT Summary of Care Provided: The patient is a 23 year old F with h/o prior section admitted at 37 / 27wga with preeclampsia with severe features. She underwent a repeat section that was uncomplicated. She received approximately 24 hours of magnesium IV . Her course was otherwise unremarkable and she was discharged to home on post-operative day #2. Discharge Diet: No Restrictions Discharge Activity: Return to Normal Activity, May Not Drive - for 2 weeks or while taking narcotic pain meds., May not drive while taking narcotic pain medications., May Shower, - - No tub bath for 1-2 weeks May resume sexual activity in: 6 weeks Call your doctor if your incision/area has: Continuous Slow Oozing, Sudden Increased Bleeding, Increased Pain/ Swelling, Increased Redness, Foul Smelling Discharge Call your doctor if you observe: Fever of 101 or Higher, Inability to urinate, Inability to have a bowel movement, Using more than one pad per hour, Shortness of breath, Chest pain, Calf discomfort, Uncontrolled pain Suture Line Care: Avoid Pulling/Pushing Remove Dressing in (days):: 3 Cleanse incision/area with: Soap & Water Home Medications: Medications to take at Discharge Prenatabs FA 1 tab PO DAILY 01/02/18 Ibuprofen 600 mg PO TID PRN #30 tab 03/18/18 Oxycodone [Oxyir] 1 - 2 tab PO Q4H PRN PRN 3 Days #28 tab 03/18/18 Senna/Docusate Sodium [Senokot-S] 1 - 2 tab PO DAILY PRN #60 tablet 03/18/18 Following Prescrptions Were Given to Patient: Oxycodone [Oxyir] 1 - 2 tab PO Q4H PRN PRN 3 Days #28 tab PRN Reason: Mod-Severe Pain () Ibuprofen 600 mg PO TID PRN #30 tab PRN Reason: Pain Primary Care Physician: Care Physician,No Primary [Primary Care Provider] - Please Follow Up With: Chance Raman MD When: 7-10 days for incision and blood pressure check Please Follow Up With: Chance Raman MD When: 6 weeks for visit Medical Necessity - Tobacco Use Smoking Status: Former smoker Meaningful Use Info Meaningful Use Diagnoses (Choose all that apply): None applicable
[2018-03-19] MEDS: 0.9% Saline Lock 10 ML Syringe IV ×2 (09:03→14:36)
[2018-03-19] MEDS: Enoxaparin 40 MG/0.4 ML Syringe SC (12:19)
[2018-03-19 14:00] VITALS: BP 109/54; PULSE 94; RESP 18; TEMP 36.1
[2018-03-19 20:15] VITALS: BP 115/57; PULSE 96; RESP 16; TEMP 36.3; O2SAT 97
[2018-03-20 02:45] VITALS: BP 134/60; PULSE 87; RESP 16; TEMP 36.6
[2018-03-20] MEDS: Ketorolac 30 MG/ML Syringe IV (02:46)
--- NOTE | 2018-03-20 07:23 | PCM.PN.OB ---
Patient Problems: Active and Suspected Problems Delivery by elective section (Acute) 37 weeks gestation of (Acute) Pre-eclampsia in third trimester (Acute) Subjective: Postoperative day #2 status post repeat Patient without complaints. Tolerating diet well. Positive flatus. Wants to go home later today. - Physical Exam Vital Signs AF, VSS Temp Pulse Resp BP Pulse Ox 97.8 F 87 16 134/60 H 97 03/20/18 02:45 03/20/18 02:45 03/20/18 02:45 03/20/18 02:45 03/19/18 20:15 Oxygen Delivery Method Room Air Weight: 274 lb 7.608 oz Body Mass Index (BMI) 47.1 Intake and Output for Last 24 Hours 03/18/18 03/19/18 03/20/18 23:59 23:59 23:59 Intake Total 6097 / 6097 1250 / 1250 Output Total 2675 / 2675 2100 / 2100 Balance 3422 / 3422 -850 / -850 Wound is clean, dry, intact. Good urine output. No evidence of toxemia at present. Medical Necessity - Tobacco Use Smoking Status: Former smoker Assessment/Plan All Active Problems Delivery by elective section (Acute) 37 weeks gestation of (Acute) Pre-eclampsia in third trimester (Acute) Postoperative day #2 status post repeat Doing well. Will release to home with routine instructions. Follow-up in 1 week for incision check.
[2018-03-20 08:00] VITALS: BP 120/71; PULSE 90; RESP 16; TEMP 35.9
[2018-03-20] MEDS: oxyCODONE 5 MG Tablet PO (08:21)
[2018-03-20] MEDS: Prenatal Vits Tablet 1 TABLET PO (08:22)
[2018-03-20] MEDS: Senna/Docusate Sodium 1 Tablet PO (08:22)
[2018-03-20] MEDS: Ibuprofen 600 MG Tablet PO (12:16)
[2018-03-20 15:24] VITALS: BP 120/71; PULSE 90; RESP 16; TEMP 35.9
[2018-03-21 06:24] LABS: Pathology Specimen OB SEE PATHOLOGY REPORT
== END 2018-03-20 15:15 | disposition home or self-care (01) | DRG 371 ==
LOC: WP 03-19 06:52
PROVIDERS: Admitting Provider Obstetrics & Gynecology; Visit Provider Obstetrics & Gynecology
DX: O14.14 Severe pre-eclampsia complicating childbirth (principal); O13.4 Gestational [pregnancy-induced] hypertension without significant proteinuria, complicating childbirth; O41.03X0 Oligohydramnios, third trimester, not applicable or unspecified; O34.219 Maternal care for unspecified type scar from previous cesarean delivery; Z87.891 Personal history of nicotine dependence; Z3A.37 37 weeks gestation of pregnancy; Z37.0 Single live birth
CPT/HCPCS: 59025; 59050; 76815; 80053; 81001; 81050; 82043; 82570; 84156; 84550; 85027; 85461; 86850; 86900; 88307; 90384; 93971; 99218; J7120; A4216; G0378; J2405; J2790

== ENCOUNTER → 2018-05-01 14:25 | Outpatient (CLI) | payer MEDICAID, SELFPAY ==
[2018-05-01 15:06] LABS: hCG Titer Quant., Serum < 1 mIU/mL (<9 non-preg)
== END ==
PROVIDERS: Visit Provider Obstetrics & Gynecology
DX: N91.2 Amenorrhea, unspecified (principal)
CPT/HCPCS: 36415; 84702

== ENCOUNTER → 2018-06-04 13:00 | Outpatient (CLI) | payer MEDICAID, SELFPAY ==
[2018-06-12 09:47] LABS: HPV APTIMA, High Risk Negative (Negative)
== END ==
PROVIDERS: Visit Provider Obstetrics & Gynecology
DX: Z12.4 Encounter for screening for malignant neoplasm of cervix (principal)
CPT/HCPCS: 88175; G0145

== ENCOUNTER → 2018-09-27 17:11 | Outpatient (CLI) | payer MEDICAID, SELFPAY ==
[2018-09-27 19:07] LABS: Chlamydia Trachomatis by PCR Negative (Negative); Neisserai gonorrhoeae by PCR Negative (Negative); Probe Check PASS; Sample Adequacy Control PASS; Specimen Processing Control PASS
== END ==
PROVIDERS: Referring Provider Obstetrics & Gynecology; Visit Provider Obstetrics & Gynecology
DX: Z11.3 Encounter for screening for infections with a predominantly sexual mode of transmission (principal)
CPT/HCPCS: 87491; 87591

== ENCOUNTER → 2019-07-24 | Outpatient (CLI) | payer MEDICAID, SELFPAY ==
[2018-03-18 01:27] VITALS: BMI 47.1
[2019-07-24 20:56] LABS: Chlamydia Trachomatis by PCR POSITIVE (Negative); Neisserai gonorrhoeae by PCR Negative (Negative); Probe Check PASS
== END | disposition home or self-care (01) ==
LOC: LABSPEC 16:50
PROVIDERS: Visit Provider Obstetrics & Gynecology
DX: Z11.3 Encounter for screening for infections with a predominantly sexual mode of transmission (principal)
CPT/HCPCS: 87491; 87591

== ENCOUNTER → 2019-08-28 17:52 | Outpatient (CLI) | payer MEDICAID, SELFPAY ==
[2018-03-18 01:27] VITALS: BMI 47.1
[2019-08-28 20:16] LABS: Chlamydia Trachomatis by PCR Negative (Negative); Neisserai gonorrhoeae by PCR Negative (Negative); Probe Check PASS; Sample Adequacy Control PASS; Specimen Processing Control PASS
== END ==
PROVIDERS: Referring Provider Obstetrics & Gynecology; Visit Provider Obstetrics & Gynecology
DX: Z11.3 Encounter for screening for infections with a predominantly sexual mode of transmission (principal)
CPT/HCPCS: 87491; 87591

== ENCOUNTER → 2019-12-30 | Outpatient (CLI) | payer MEDICAID, SELFPAY ==
[2018-03-18 01:27] VITALS: BMI 47.1
[2019-12-30 13:46] LABS: Internal QC Validated? YES +Cl - CLEAR BKGD; Pregnancy, Serum, hCG Quali. NEGATIVE Negative
== END | disposition home or self-care (01) ==
LOC: LAB 13:18
PROVIDERS: Referring Provider Obstetrics & Gynecology; Visit Provider Obstetrics & Gynecology
DX: N91.2 Amenorrhea, unspecified (principal)
CPT/HCPCS: 36415; 84703

== ENCOUNTER → 2020-03-10 | Outpatient (CLI) | payer MEDICAID, SELFPAY ==
[2020-03-10 12:59] LABS: Chlamydia Trachomatis by PCR Negative (Negative); Neisserai gonorrhoeae by PCR Negative (Negative); Probe Check PASS; Sample Adequacy Control PASS; Specimen Processing Control PASS
[2020-03-10 14:19] LABS: Probe Check PASS; Sample Adequacy Control PASS; Specimen Processing Control PASS; Trichomonas Vag DNA by PCR Negative (Negative)
[2020-03-12 01:06] LABS: HSV 2 IgG 4.68 index (0.00-0.90)
[2020-03-12 01:07] LABS: HSV-2 IGG REFLEX 1.16 (Negative)
== END | disposition home or self-care (01) ==
PROVIDERS: Visit Provider Obstetrics & Gynecology
DX: Z11.3 Encounter for screening for infections with a predominantly sexual mode of transmission (principal)
CPT/HCPCS: 36415; 86695; 86696; 87491; 87591; 87661

== ENCOUNTER → 2020-05-27 15:19 | Outpatient (CLI) | payer MEDICAID, SELFPAY ==
[2018-03-18 01:27] VITALS: BMI 47.1
[2020-05-31 03:06] LABS: Chlamydia By Nucleic Acid AMP Negative (Negative)
[2020-05-31 05:39] LABS: Gonococcus By Nucleic Acid AMP Negative (Negative)
[2020-06-01 12:25] LABS: HPV APTIMA, High Risk Negative (Negative)
[2020-06-01 12:26] LABS: HPV Reflexed? YES, CHARGE PATIENT
== END ==
PROVIDERS: Visit Provider Obstetrics & Gynecology
DX: Z12.4 Encounter for screening for malignant neoplasm of cervix (principal); Z11.3 Encounter for screening for infections with a predominantly sexual mode of transmission
CPT/HCPCS: 87491; 87591; 87624; 88175; G0145

== ENCOUNTER → 2020-06-18 | Outpatient (CLI) | payer MEDICAID, SELFPAY ==
[2020-06-18 12:46] LABS: Absolute Lymphocyte Count 2.34 X10^3/uL (0.83-4.51); Absolute Neutrophil Count 4.5 X10^3/uL (2.0-7.7); Basophil# 0.02 X10^3/uL; Basophil% 0.3 % (0-1); Eosinophil# 0.09 X10^3/uL; Eosinophils% 1.2 % (0-5); Hemoglobin 12.8 g/dL (12.0-15.0); Lymphocyte # 2.34 X10^3/ul (4.0); Mean Corp Hgb Conc 33.7 g/dL (32-36); Mean Corpuscular Hgb 29.2 pg (27.0-32.0); Mean Corpuscular Volume 86.6 fL (81-99); Mean Platelet Vol. 9.4 fl (6.2-12.0); Monocyte# 0.38 X10^3/uL; Monocyte% 5.2 % (0-10); NRBC Flagged by Analyzer 0 % (0-5); Neutrophil # 4.46 X10^3/uL (2.7-7.7); Neutrophil % 60.9 % (47-70); Platelet Count 276 K/mm3 (150-450); RBC Distribution Width CV 12.7 % (11.6-14.6); RBC Distribution Width SD 40.1 fl (35.1-43.9); Red Blood Count 4.39 M/mm3 (4.2-5.4); White Blood Count 7.3 K/mm3 (4.4-11.0)
[2020-06-18 12:48] LABS: Color, Urine Yellow (Yellow); Glucose, Dipstick Normal (Normal); Ketone-Dipstick Negative (Negative); Leukocyte Esterase-Dipstick Negative /ul (Negative); Nitrite-Dipstick Negative (Negative); Occult Blood-Urine 10 /ul (Negative); Protein-Dipstick Negative (Negative); Specific Gravity, Urine 1.015 (1.002-1.030); Urine Bilirubin Dipstick Negative (Negative); Urine Clarity Sl. Cloudy (Clear); Urine Urobilinogen Normal (Normal)
[2020-06-18 12:54] LABS: Amphetamine Urine VISTA NEGATIVE (<1000 ng/mL); Barbiturate Urine VISTA NEGATIVE (< 200 ng/mL); Benzodiazepine Urine VISTA NEGATIVE (< 200 ng/mL); Cocaine Urine VISTA NEGATIVE (< 300 ng/mL); Ecstacy Urine VISTA NEGATIVE (< 500 ng/mL); Methadone Urine VISTA NEGATIVE (< 300 ng/mL); PCP Urine VISTA NEGATIVE (< 25 ng/mL); THC Urine VISTA NEGATIVE (< 50 ng/mL); Vista UDS pH Range 6
[2020-06-18 13:29] LABS: HIV - WCH Non-Reactive (Nonreactive); Hepatitis B Surface Antigen Non-Reactive (Nonreactive); Hepatitis C Antibody Non-Reactive (Nonreactive)
[2020-06-18 13:35] LABS: Thyroid Stim Hormone (TSH) 1.82 uIU/mL (0.358-3.74)
[2020-06-25 02:04] LABS: Prenatal RPR NONREACTIVE (NONREACTIVE)
== END | disposition home or self-care (01) ==
PROVIDERS: Visit Provider Obstetrics & Gynecology
DX: Z34.81 Encounter for supervision of other normal pregnancy, first trimester (principal)
CPT/HCPCS: 36415; 80307; 81002; 84443; 85025; 86703; 86762; 86803; 87340

== ENCOUNTER → 2020-07-14 | Outpatient (CLI) | payer MEDICAID, SELFPAY | END | disposition home or self-care (01) | PROVIDERS: Visit Provider Student in an Organized Health Care Education/Training Program | DX: N39.0 Urinary tract infection, site not specified (principal) | CPT/HCPCS: 87086; 87088 ==

== ENCOUNTER → 2020-08-24 15:50 | Outpatient (CLI) | payer MEDICAID, SELFPAY ==
[2018-03-18 01:27] VITALS: BMI 47.1
== END ==
PROVIDERS: Visit Provider Obstetrics & Gynecology
DX: R30.0 Dysuria (principal)
CPT/HCPCS: 87086; 87088; 87186

== ENCOUNTER 2020-09-10 12:10 | Emergency (ER) | payer MEDICAID, SELFPAY ==
[2020-09-10 12:11] VITALS: BP 132/78; PULSE 84; RESP 20; TEMP 36.2; O2SAT 98; BMI 42.9
--- NOTE | 2020-09-10 12:22 | ED.VIS.GEN ---
History of Present Illness Chief Complaint: General Illness Informant: Patient Narrative: 25-year-old female states that she is . She states that she has developed a cough, sore throat, sweating, chills, headache. The symptoms began yesterday. She states that she has had 2 rapid Covid swabs that have been negative. She tells me that she gets hot and cold but has not taken her temperature. 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 She called her doctors and they said that if she is feeling really poorly she should come to emergency. She has been drinking water. Past Medical History - Allergies and Home Meds Allergies/Adverse Reactions: Allergies amoxicillin [From Augmentin] Allergy (Verified 09/10/20 12:14) Rash clavulanic acid [From Augmentin] Allergy (Verified 09/10/20 12:14) Rash peanut Allergy (Verified 09/10/20 12:14) Other states she had an off brand of peanut butter once that made her throat feel funny but does not avoid peanuts or peanut butter Primary Care Physician: Care Physician,No Primary [NON-STAFF] - Past Medical History: None Surgical History: noncontributory Lives: With Family Smoking Status: Former smoker Drugs: None Review of Systems General: Reports: Chills, Malaise, Sweats. Denies: Fever Eyes: Denies: Visual changes - bilaterally, Diplopia ENT: Reports: Rhinorrhea, Sore throat Cardiovascular: Denies: Chest pain, Palpitations Respiratory: Reports: Cough. Denies: Dyspnea, Dyspnea on exertion Gastrointestinal: Denies: Abdominal pain, Nausea, Vomiting, Diarrhea, Melena, Hematochezia Genitourinary: Denies: Dysuria, Hematuria, Frequency Musculoskeletal: Reports: Myalgias. Denies: Back pain, Extremity Pain Skin: Denies: Rash, Wounds Neurological: Reports: Headache. Denies: Weakness, Numbness Physical Exam Vital Signs/Narrative: Vital Signs Temp Pulse Resp BP Pulse Ox 09/10/20 12:11 97.1 F L 84 20 H 132/78 H 98 Inital Vital Signs reviewed: Yes General: Well nourished, Well developed, Obese, No Acute Distress Head: Normocephalic, Atraumatic Eyes: Perrl, EOMI ENT: Moist mucous membranes, No rhinorrhea Neck: Supple, Nontender Cardiovascular: Regular rate, Regular rhythm, No murmurs Respiratory: No distress, CTA bilaterally, Chest nontender Abdomen: Soft, Nontender, Nondistended, Normal bowel sounds Back: Nontender, Normal Inspection Extremities: Nontender, No edema Skin: Normal color, No rash Neurological: Alert, Oriented x3, Cranial nerves II-XII grossly intact, Normal Strength, Normal Sensation Psychological: Normal affect, Normal Mood Diagnostic/Tx/Re-eval Clinical Impression(s) from Imaging Studies Chest X-Ray 09/10/20 12:35 IMPRESSION: Limited inspiratory effort. No acute abnormality is seen. Electronically Signed: Kalpesh Bela, at 12:52 EST , Service support , - Medical Decision Making Covid antigen test negative. Single view portable chest x-ray on my interpretation shows no acute disease. Confirmed by radiology. Patient most likely has a viral syndrome. Would recommend continued supportive care. ED Disposition - Plan for ED Patient: Disposition: Home or Assisted Living Diagnosis: Viral syndrome Instructions: ED Viral Syndrome (Adult) Additional Instructions: Follow-up with your doctors as needed. You are very limited in the [id number] medications that you can take. If you have any questions about [id number] cold medicine ideations please discuss with your OPERATIONS PROGRAM MANAGER.
--- NOTE | 2020-09-10 12:35 | RAD_ITS ---
STUDY: X-RAY CHEST REASON FOR EXAM: Female, 25 years old. COUGH, SORE THROAT, SWEATING, CHILLS, HEADACHE ALL SX SINCE YESTERDAY. TECHNIQUE: Single AP portable view of the chest. COMPARISON: None. FINDINGS: Limited inspiratory effort. There is no demonstrated pleural abnormality. Normal size heart. Normal mediastinum and chin. Normal visualized pulmonary arteries. Normal visualized aortic arch and descending thoracic aorta. Normal visualized thoracic spine. Normal visualized ribs, clavicles, and shoulders. There is no demonstrated abnormality of the visualized soft tissue structures of the upper abdomen. RAD/Chest 1 View (Portable) IMPRESSION: Limited inspiratory effort. No acute abnormality is seen. Electronically Signed: Kalpesh Cramer, at 12:52 EST , Service support ,
== END 2020-09-10 13:40 | disposition home or self-care (01) ==
PROVIDERS: Emergency Provider Emergency Medicine; PCP Nurse Practitioner Family
DX: O99.519 Diseases of the respiratory system complicating pregnancy, unspecified trimester (principal); B34.9 Viral infection, unspecified; Z3A.00 Weeks of gestation of pregnancy not specified; Z87.891 Personal history of nicotine dependence
CPT/HCPCS: 71045; 87426; 99282

== ENCOUNTER → 2020-11-04 10:17 | Outpatient (CLI) | payer MEDICAID, SELFPAY ==
[2020-11-04 11:43] LABS: Hematocrit 35.2 % (37-47); Hemoglobin 11.9 g/dL (12.0-15.0); Mean Corp Hgb Conc 33.8 g/dL (32-36); Mean Corpuscular Hgb 29.8 pg (27.0-32.0); Mean Platelet Vol. 9.8 fl (6.2-12.0); Platelet Count 260 K/mm3 (150-450); RBC Distribution Width CV 13.1 % (11.6-14.6); RBC Distribution Width SD 42.4 fl (35.1-43.9); White Blood Count 8.4 K/mm3 (4.4-11.0)
[2020-11-04 11:51] LABS: Glucose Challenge Gest 1H 50g 121 mg/dL (70-140)
== END ==
PROVIDERS: PCP Nurse Practitioner Family; Visit Provider Obstetrics & Gynecology
DX: Z34.83 Encounter for supervision of other normal pregnancy, third trimester (principal)
CPT/HCPCS: 36415; 82950; 85027; 86850

== ENCOUNTER 2020-11-17 11:00 | Outpatient (CLI) | payer MEDICAID, SELFPAY ==
[2020-11-17 11:32] VITALS: BP 125/67; PULSE 100
[2020-11-17 11:33] VITALS: PULSE 44; O2SAT 83
[2020-11-17 11:37] VITALS: BMI 46.0
[2020-11-17] MEDS: Lactated Ringers 1,000 ML 999 ML IV (12:00)
[2020-11-17] MEDS: Ondansetron 4 MG/2 ML Vial IV (12:22)
[2020-11-17 14:36] LABS: Red Blood Cells-Urine 0 SEEN /hpf (0-5)
[2020-11-17 14:44] LABS: Color, Urine Yellow (Yellow); Glucose, Dipstick Normal (Normal); Leukocyte Esterase-Dipstick 500 /ul (Negative); Nitrite-Dipstick Negative (Negative); Occult Blood-Urine Negative /ul (Negative); Protein-Dipstick 30 mg/dl (Negative); Urine Clarity Sl. Cloudy (Clear); Urine Urobilinogen 1 mg/dl (Normal)
[2020-11-17 14:51] LABS: Urine Bilirubin Dipstick 1 mg/dL (Negative)
[2020-11-17 14:52] LABS: Ketone-Dipstick 150 mg/dl (Negative)
[2020-11-17 14:59] LABS: Bacteria 1+ /hpf (None Seen); Mucous, Urine 1+ /hpf (<or=2+); Squamous Epithelial Cells - UA 10-25 SEEN /hpf (5-10); White Blood Cells 25-50 SEEN /hpf (0-5)
[2020-11-17] MEDS: Acetaminophen 500 MG Tablet 1000 MG PO (15:22)
[2020-11-18 15:13] VITALS: PULSE 214; O2SAT 83
[2020-11-18 15:14] VITALS: PULSE 112; O2SAT 99
[2020-11-18 15:15] VITALS: BP 119/75; PULSE 105
--- NOTE | 2020-11-23 11:46 | PCM.PN.BLA ---
Progress Note Triage note 31w visit for nausea/emesis/diarrhea. Given IVFs, zofran, offered imodium. Nausea resolved. UA negative. Discharged home with precautions, supportive care.
== END 2020-11-17 15:45 | disposition home or self-care (01) ==
LOC: WPOUT 11:11 → WP 11:12
PROVIDERS: PCP Nurse Practitioner Family; Referring Provider Student in an Organized Health Care Education/Training Program; Visit Provider Student in an Organized Health Care Education/Training Program
DX: O21.2 Late vomiting of pregnancy (principal); Z3A.31 31 weeks gestation of pregnancy
CPT/HCPCS: 96361; 96374; 59050; 81001; 87086; 87088; 99218; J7120; G0378; J2405

== ENCOUNTER → 2020-12-25 11:12 | Outpatient (CLI) | payer MEDICAID, SELFPAY | PROVIDERS: PCP Nurse Practitioner Family; Visit Provider Obstetrics & Gynecology | DX: Z36.85 Encounter for antenatal screening for Streptococcus B (principal) | CPT/HCPCS: 87081 ==

== ENCOUNTER 2020-12-29 08:17 | Inpatient (IN) | payer MEDICAID, SELFPAY ==
[2020-12-29] VITALS (24 sets, daily range): BP systolic 92–139; BP diastolic 43–93; PULSE 68–111; RESP 14–18; TEMP 35.6–36.6; O2SAT 94–100; BMI 46.5
[2020-12-29] MEDS: Lactated Ringers 1,000 ML 999 ML IV ×2 (04:32→09:48)
[2020-12-29] MEDS: Lactated Ringers 1,000 ML 250 ML IV (05:55)
--- NOTE | 2020-12-29 08:38 | PCM.HPOB.BLA ---
History and Physical Date of Admission: 12/29/20 HPI: 25-year-old at 37/1 weeks, KALLIE 01/19/2020 1 x 9-week ultrasound, admitted for contractions. Patient states that on Monday she had nausea and vomiting and was not feeling well. She began to have contractions that day which continued since that time. She was seen in the office yesterday for some spotting and contractions. Was told that the contractions were occurring but not were very close together and was advised to go home with rest and hydration. Overnight contractions became worse. In the room she is tearful, exhausted, uncomfortable. Denies leaking of fluid, vaginal bleeding at this time. Reports movement. 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 Obstetrical History : c section 09/14/12 G2: 03/18/18 female Past Medical History Obesity Medications PNV, Valtrex, lexapro Past Surgical History x2 Wrist surgery Tonsillectomy and adenoidectomy [place] tooth extraction Social History Tobacco use: denies Alcohol use: denies Illicit drug use: denies Labs Blood type: O neg Rubella: immune Hep B/C: neg/neg HIV: neg RPR: nonreactive 1 hour GTT: wnl GBS: neg 4/2 Allergies Augmentin --> childhood rash, no throat swelling or difficulty breathing Peanuts --> laryngeal edema Review of Systems General: alert and oriented HEENT: denies change of vision Heart/lungs: denies CP, SOB GI: denies nausea, vomiting, dysuria, diarrhea MSK: denies calf pain, tenderness Physical Exam Vital Signs Temp Pulse BP Pulse Ox 12/29/20 08:00 97.9 F 86 139/75 H 97 12/29/20 03:28 96.8 F L 98 12/29/20 03:25 85 137/82 H General: a&o x3, NAD HEENT: normocephalic, atraumatic Cardio: no JVD Resp: no increased work in breathing Abdomen: soft, gravid, nontender Extremities: _minimal-moderate edema CE: Cl/th/high FHT: 135/mod [place]/+accel/no decel [place]: q2-3 min Labs CBC, T&S pending Assessment & Plan 25-year-old at 37/1 weeks, KALLIE 01/19/2020 1 x 9-week ultrasound, admitted for labor in the setting of prior section. 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 She is uncomfortable and tearful in room. Abdomen is soft, no signs of abruption. However concerns for labor as contractions have been worsening over the past few days. Although her cervix is not dilated at this time, she has been monitored for several hours with regular contractions. Based on evidence of early labor, will proceed with repeat section at this time. All risks, benefits, alternatives were discussed with the patient. Risks include but are not limited to: Risk of bleeding to the point of transfusion, infection, injury to surrounding tissue including bowel or bladder requiring prolonged Zamarripa catheter use, VTE, ICU admission. Patient aware and consented. Plan for 3 g Ancef and 500 mg azithromycin preop. Plan for Lovenox . We will proceed in urgent but not emergent fashion. - GBS negative - CEFM - Anesthesia to see -History of depression not on medications currently. -HSV. Continue Valtrex
[2020-12-29] MEDS: Acetaminophen 500 MG Tablet 1000 MG PO ×3 (09:09→20:44)
[2020-12-29 09:12] LABS: Absolute Lymphocyte Count 2.05 X10^3/uL (0.83-4.51); Absolute Neutrophil Count 4.8 X10^3/uL (2.0-7.7); Basophil# 0.03 X10^3/uL; Basophil% 0.4 % (0-1); Eosinophils% 2.5 % (0-5); Hematocrit 32.3 % (37-47); Hemoglobin 10.8 g/dL (12.0-15.0); Lymphocyte # 2.05 X10^3/ul (4.0); Lymphocyte % 26.1 % (19-41); Mean Corp Hgb Conc 33.4 g/dL (32-36); Mean Corpuscular Hgb 28.6 pg (27.0-32.0); Mean Corpuscular Volume 85.7 fL (81-99); Mean Platelet Vol. 9.5 fl (6.2-12.0); Monocyte# 0.65 X10^3/uL; Monocyte% 8.3 % (0-10); NRBC Flagged by Analyzer 0 % (0-5); Neutrophil # 4.81 X10^3/uL (2.7-7.7); Neutrophil % 61.3 % (47-70); Platelet Count 255 K/mm3 (150-450); RBC Distribution Width CV 13.4 % (11.6-14.6); RBC Distribution Width SD 41.7 fl (35.1-43.9); Red Blood Count 3.77 M/mm3 (4.2-5.4); White Blood Count 7.9 K/mm3 (4.4-11.0)
[2020-12-29] MEDS: Sodium Citrate/Citric Acid 30 ML UDC PO (09:48)
--- NOTE | 2020-12-29 10:01 | PCM.OPRPT ---
Delivery Final KALLIE: 01/18/21 Final KALLIE Source: US <20 weeks Gestational age: 37 Weeks and 1 Days Type of Anesthesia:: Spinal Date of Procedure: 12/29/20 Pre-Operative Diagnosis: Spivey intrauterine , Early term. Labor. Class III obesity. Post-Operative Diagnosis: Spivey intrauterine , Early term. Labor. Class III obesity. Extensive adhesions. Indications: 25-year-old at 37/1 weeks presenting in early labor with history of prior section x2. Decision for repeat section made. All risk, benefits, alternatives discussed the patient. Risks include but are not limited to: Risk of bleeding to the point of transfusion, infection, injury to surrounding tissue including bowel or bladder requiring prolonged Zamarripa catheter use, VTE, ICU admission. Patient aware and consented. Indications for : Repeat Elective Description of Procedure: Patient taken to the operating room spinal anesthesia placed. Patient placed in the supine position with left lateral tilt. Pfannenstiel skin incision made with scalpel and carried through subcutaneous tissue. Which was noted to be thickened. Fascia nicked on either side of the midline and extended bilaterally with Lord scissors. Nico used to grasp superior fascial edge which was tented up and underlying rectus muscles dissected off using Bovie and blunt dissection. Nioc clamps then moved to inferior fascial edge which was tented up and underlying rectus muscles were dissected off bluntly and sharply using Bovie. Adhesions noted of fascia to rectus. Rectus muscles superiorly with hemostats peritoneum identified and grasped. Peritoneum incised with scissors and extended bluntly. Peritoneal window opened partially and inferior rectus muscles were using Bovie. Peritoneum with scissors. Bladder blade placed. Lower uterine segment noted to be thin and bulging. Vesicouterine peritoneum identified, with scarring of the anterior uterus. Bladder flap created with Metzenbaum scissors. Bladder blade replaced. Low transverse uterine incision made with scalpel extended bluntly. Amniotomy on entry, clear fluid. Hand placed into the uterus and gentle fundal pressure provided after bladder blade removed. Head descended slightly, and the left occiput transverse position. Vacuum opened. One of the Todd straps released to assist in fundal pressure. Vacuum applied to head, 1 pop-off. Right rectus muscles identified and incised with bandage scissors. Hand replaced into the uterus and fundal pressure applied, some head descent noted however unable to deliver. Fundal pressure released and placed inside the uterus and bandage scissors used to extend the hysterotomy vertically to make a T-incision. Attempt to deliver with fundal pressure made again with no success. Skin and fascial incision extended towards the patient's right. And replaced into the uterus and fundal pressure applied without delivery of head. Vacuum applied again, with another pop-off. T incision extended. Hand replaced into the uterus. Head then delivered, with fundal pressure. Cord clamped and cut baby to nursing. Manual extraction of the placenta. Uterus exteriorized. Noting slightly adherent placental membranes. Placental membranes removed with lap and ring forceps. Closure of hysterotomy started with the vertical portion of the incision. Running locking stitch placed starting at the vertical apex towards the edge of the transverse incision. A second layer placed, nonlocking. Final baseball stitch utilized to close the vertical portion of the incision. Transverse incision then closed. Run locking stitch placed first followed by a second vertical imbricating stitch. Area of oozing left of the region where the vertical and transverse incisions join was noted, stopped with [id number] stitch. Closure noted to be hemostatic. Replaced into the abdomen, again checked for hemostasis which was noted. Peritoneum was then closed with running stitch. Rectus muscles reapproximated at midline and on the right where they had been incised with horizontal mattress stitches. Fascia then closed with a running stitch. Subcutaneous tissue reapproximated with running stitch. Skin then closed with a running subcuticular stitch. At the end of the procedure all needle, lap, sponge counts were correct x3. Urine output: 300 cc Discussed extent of adhesions and scar tissue with patient and her partner immediately postoperatively. Patient also notified of thin lower uterine segment. Recommend at least 18 months to 2 years prior to attempting again to allow uterus to heal. Strongly encourage long-acting control method. Consideration of no further pregnancies however if she were to desire additional , consider 1 additional only. Recommend delivery at 36 to 37 weeks due to T-incision. Patient and partner expressed understanding. Understood that she had extensive scarring at the time of the last section as well. Amniotic Membrane Rupture Type: Spontaneous Amniotic Fluid Description: Clear Fluids Replaced: 1200cc Cord Entanglement: None Esitmated Blood Loss (ml): 1000cc Infant Gender: Female (1 minute): 8 (5 minute): 9 Antibiotic Given: Ancef 3 grams IV x1, Zithromax 500 mg/5 mL X1 - Admit VTE Documentation VTE Mechan Device Prophylaxis: SCD's
--- NOTE | 2020-12-29 10:02 | DCINST_ITS ---
<Gloria Wiley - Last Filed: 12/29/20 10:02> Discharge Diet: No Restrictions Discharge Activity: Return to Normal Activity, May not drive while taking narcotic pain medications., May Shower May resume sexual activity in: 6-8 weeks Call your doctor if your incision/area has: Continuous Slow Oozing, Sudden Increased Bleeding, Increased Pain/ Swelling, Increased Redness Call your doctor if you observe: Fever of 101 or Higher, Inability to urinate, Inability to have a bowel movement, Using more than one pad per hour, Shortness of breath, Calf discomfort, Uncontrolled pain Cleanse incision/area with: Soap & Water Additional Instructions: If you experience any of the following, contact your healthcare provider. * Bleeding that soaks a pad every hour for 2 hours * Fever 100.4 or higher * Unrelieved incision or abdominal pain * Swelling, redness, discharge or bleeding from your incision or episiotomy site * Your incision begins to separate * Problems urinating (including inability to urinate or burning while urinating). * Visual changes * Severe headache * Flu-like symptoms * Pain or redness in one of both of your breasts * Pain, warmth, tenderness or swelling in your legs, especially the calf area * Frequent nausea and vomiting * Symptoms of depression or anxiety If you experience any of the following, call 911 or go to the nearest Emergency Room. * Chest pain * Problems breathing * Seizure activity * Partial or complete paralysis of a body part, slurred speech, weakness or drooping of the face, or a sudden inability to walk or hold your balance Allergies/Adverse Reactions: Allergies amoxicillin [From Augmentin] Allergy (Verified 12/29/20 03:41) Rash clavulanic acid [From Augmentin] Allergy (Verified 12/29/20 03:41) Rash peanut Allergy (Verified 12/29/20 03:41) Other states she had an off brand of peanut butter once that made her throat feel funny but does not avoid peanuts or peanut butter Medications to take at Discharge Prenatabs FA 1 tab PO DAILY 01/02/18 Valacyclovir HCl [Valtrex] 1,000 mg PO PRN PRN 12/29/20 Oxycodone [Oxyir] 5 mg PO Q6H PRN PRN 4 Days #16 tablet 12/31/20 The following prescriptions were given: Oxycodone [Oxyir] 5 mg PO Q6H PRN PRN 4 Days #16 tablet PRN Reason: Pain Score 6-10 Transmission Status: Received by [facility]/pharmacy #[id number] Follow-Up: Call to make an appointment with your doctor for an incision check in 1-2 weeks. You will also need a 6 week post- follow up appointment. Test results from this visit will be discussed in further detail at your follow- up appointment, if applicable. Please Follow Up With: Chance Raman MD When: 2 week incision check, 6 week Primary Care Physician: Lenora España GROUP CHIEF OPERATOR, GROUP CHIEF OPERATOR-C [Primary Care Provider] - <Redd Wiley - Last Filed: 12/31/20 08:05> Additional Instructions: If you experience any of the following, contact your healthcare provider. * Bleeding that soaks a pad every hour for 2 hours * Fever 100.4 or higher * Unrelieved incision or abdominal pain * Swelling, redness, discharge or bleeding from your incision or episiotomy site * Your incision begins to separate * Problems urinating (including inability to urinate or burning while urinating). * Visual changes * Severe headache * Flu-like symptoms * Pain or redness in one of both of your breasts * Pain, warmth, tenderness or swelling in your legs, especially the calf area * Frequent nausea and vomiting * Symptoms of depression or anxiety If you experience any of the following, call 911 or go to the nearest Emergency Room. * Chest pain * Problems breathing * Seizure activity * Partial or complete paralysis of a body part, slurred speech, weakness or drooping of the face, or a sudden inability to walk or hold your balance Follow-Up: Call to make an appointment with your doctor for an incision check in 1-2 weeks. You will also need a 6 week post- follow up appointment. Test results from this visit will be discussed in further detail at your follow- up appointment, if applicable.
[2020-12-29] MEDS: Oxytocin 30 units/NS 500 ml 30 UNITS/500 ML IV.SOLN 167 UNITS IV (12:08)
[2020-12-29] MEDS: Ketorolac 30 MG/ML Syringe IV ×2 (12:11→17:46)
[2020-12-29] MEDS: Lactated Ringers 1,000 ML 100 ML IV (15:38)
[2020-12-29] MEDS: 0.9% Saline Lock 10 ML Syringe IV ×2 (17:46→18:33)
[2020-12-29] MEDS: Ondansetron 4 MG/2 ML Vial IV (18:33)
[2020-12-30] VITALS (7 sets, daily range): BP systolic 90–133; BP diastolic 48–63; PULSE 86–96; RESP 16–18; TEMP 35.8–36.5; O2SAT 96–98
[2020-12-30] MEDS: Acetaminophen 500 MG Tablet 1000 MG PO ×4 (03:47→20:56)
[2020-12-30] MEDS: Ketorolac 30 MG/ML Syringe IV ×2 (05:54)
[2020-12-30 06:10] LABS: Hematocrit 27.3 % (37-47); Mean Corpuscular Hgb 28.7 pg (27.0-32.0); Mean Corpuscular Volume 86.9 fL (81-99); Mean Platelet Vol. 9.2 fl (6.2-12.0); Platelet Count 203 K/mm3 (150-450); RBC Distribution Width CV 13.6 % (11.6-14.6); RBC Distribution Width SD 42.8 fl (35.1-43.9); Red Blood Count 3.14 M/mm3 (4.2-5.4); White Blood Count 9.3 K/mm3 (4.4-11.0)
--- NOTE | 2020-12-30 08:58 | PCM.PN.OB ---
Subjective: Patient without complaints. Tolerating diet well. Denies flatus. Bottlefeeding. Minimal vaginal bleeding reported. Pain well controlled. Objective: Wound is clean, dry, intact covered with Mepilex dressing. Good urine output. Hemoglobin okay. - Physical Exam Vitals/I&O's: Vital Signs Temp Pulse Resp BP Pulse Ox 97.4 F L 86 18 90/48 L 96 12/30/20 03:43 12/30/20 06:04 12/30/20 06:04 12/30/20 03:43 12/30/20 06:04 Oxygen Delivery Method Room Air Weight: 271 lb 6.224 oz Body Mass Index (BMI) 46.5 Intake and Output for Last 24 Hours 12/28/20 12/29/20 12/30/20 23:59 23:59 23:59 Intake Total 4445 / 4445 1563.33 / 1563.33 Output Total 1675 / 1675 350 / 350 Balance 2770 / 2770 1213.33 / 1213.33 Microbiology Past 72 Hours 12/29/20 08:50 Mucosa - Nose SARS-CoV-2 Antigen (Rapid) - Final Laboratory Results 12/29/20 09:00: WBC 7.9, RBC 3.77 L, Hgb 10.8 L, Hct 32.3 L, MCV 85.7, MCH 28.6, MCHC 33.4, RDW Std Deviation 41.7, RDW Coeff of Amber 13.4, Plt Count 255, MPV 9.5, Immature Gran % (Auto) 1.400 H, Neut % (Auto) 61.3, Lymph % (Auto) 26.1, [place] % (Auto) 8.3, Eos % (Auto) 2.5, Baso % (Auto) 0.4, Absolute Neuts (auto) 4.8, Absolute Lymphs (auto) 2.05, Nucleated RBC % 0 12/29/20 09:00: Blood Type O NEGATIVE, Antibody Screen NEGATIVE 12/29/20 12:45: Screen NEGATIVE, Baby's Blood Type O POSITIVE, Baby's COLBY NEGATIVE 12/30/20 06:00: WBC 9.3, RBC 3.14 L, Hgb 9.0 L, Hct 27.3 L, MCV 86.9, MCH 28.7, MCHC 33.0, RDW Std Deviation 42.8, RDW Coeff of Amber 13.6, Plt Count 203, MPV 9.2 Current Medications Acetaminophen (Acetaminophen 500 Mg Tablet) 1,000 mg PO Q6H IMAN Last Admin: 12/30/20 03:47 Dose: 1,000 mg Documented by: Bisacodyl (Bisacodyl 10 Mg Suppository) 10 mg RC UD PRN PRN Reason: If no BM Diphenhydramine HCl (Diphenhydramine 25 Mg Capsule) 25 mg PO Q6H PRN PRN PRN Reason: ITCHING Stop: 12/30/20 12:06 Enoxaparin Sodium (Enoxaparin 40 Mg/0.4 Ml Syringe) 40 mg SC DAILY [facility] Hydrocortisone (Hydrocortisone 2.5% Crm) 1 applic TOPICAL TID PRN PRN; Protocol PRN Reason: Discomfort Ibuprofen (Ibuprofen 600 Mg Tablet) 600 mg PO Q6H IMAN Nalbuphine HCl (Nalbuphine 10 Mg/Ml Ampul) 5 mg IV Q3H PRN PRN PRN Reason: ITCHING Stop: 12/30/20 12:06 Naloxone HCl (Naloxone 0.4 Mg/Ml Syringe) 0.02 mg IV Q1M PRN PRN Reason: RR <10 and pt unresponsive Ondansetron HCl (Ondansetron 4 Mg/2 Ml Vial) 4 mg IV Q4H PRN PRN PRN Reason: Nausea Last Admin: 12/29/20 18:33 Dose: 4 mg Documented by: Oxycodone HCl (Oxycodone 5 Mg Tablet) 5 - 10 mg PO Q4H PRN PRN PRN Reason: Pain Score 4-10 Prochlorperazine Edisylate (Prochlorperazine 10 Mg/2 Ml Vial) 10 mg IV Q6H PRN PRN PRN Reason: NAUSEA Senna/Docusate Sodium (Senna/Docusate Sodium 1 Tablet) 1 - 2 tablet PO DAILY [facility] Simethicone (Simethicone 80 Mg Tablet) 80 mg PO PCHS PRN PRN Reason: Indigestion/stomach pain Sodium Chloride (0.9% Saline Lock 10 Ml Syringe) 5 - 15 ml IV UD PRN PRN Reason: SALINE FLUSH Last Admin: 12/29/20 18:33 Dose: 10 ml Documented by: Zolpidem Tartrate (Zolpidem Tartrate 5 Mg Tablet) 5 mg ORAL QHS PRN PRN PRN Reason: Insomnia Medical Necessity - Tobacco Use Smoking Status: Former smoker Assessment/Plan All Active Problems (This Medical Record has been edited. Action required.) Delivery by elective section (Acute) 37 weeks gestation of (Acute) Pre-eclampsia in third trimester (Acute) Doing well postoperative day #1 status post repeat . Continuing present care.
[2020-12-30] MEDS: Senna/Docusate Sodium 1 Tablet PO (09:51)
[2020-12-30] MEDS: Enoxaparin 40 MG/0.4 ML Syringe SC (09:52)
[2020-12-30] MEDS: Ibuprofen 600 MG Tablet PO ×2 (12:02→18:31)
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
[2020-12-30] MEDS: Escitalopram Oxalate 20 MG Tablet PO (18:32)
[2020-12-31] MEDS: Ibuprofen 600 MG Tablet PO ×3 (00:03→12:38)
[2020-12-31] MEDS: Acetaminophen 500 MG Tablet 1000 MG PO ×2 (03:42→10:15)
[2020-12-31 03:44] VITALS: BP 111/70; PULSE 82; RESP 16; TEMP 36.3
--- NOTE | 2020-12-31 08:03 | PN.OBGYN_ITS ---
Subjective: No overnight complaints. Pain well controlled on ibuprofen and Tylenol. - Physical Exam Vitals/I&O's: Vital Signs Temp Pulse Resp BP Pulse Ox 97.4 F L 82 16 111/70 97 12/31/20 03:44 12/31/20 03:44 12/31/20 03:44 12/31/20 03:44 12/30/20 20:51 Oxygen Delivery Method Room Air Weight: 271 lb 6.224 oz Body Mass Index (BMI) 46.5 Intake and Output for Last 24 Hours 12/29/20 12/30/20 12/31/20 23:59 23:59 23:59 Intake Total 4445 / 4445 1563.33 / 1563.33 Output Total 1675 / 1675 750 / 750 Balance 2770 / 2770 813.33 / 813.33 General: Alert, Oriented x3, Cooperative, No apparent distress HEENT: Atraumatic, Normocephalic Oral: Moist Mucosa Neck: Supple, No JVD Abdomen: Soft, Non Tender, - - Bandage clean dry and intact Extremities: No clubbing, No cyanosis, No edema Neurological: Neuro grossly intact Psych/Mental Status: Normal Affect, Appropriate, Alert and oriented to time, place, person, mood and affect Microbiology Past 72 Hours 12/29/20 08:50 Mucosa - Nose SARS-CoV-2 Antigen (Rapid) - Final Current Medications Acetaminophen (Acetaminophen 500 Mg Tablet) 1,000 mg PO Q6H [facility] Last Admin: 12/31/20 03:42 Dose: 1,000 mg Documented by: Bisacodyl (Bisacodyl 10 Mg Suppository) 10 mg RC UD PRN PRN Reason: If no BM Enoxaparin Sodium (Enoxaparin 40 Mg/0.4 Ml Syringe) 40 mg SC DAILY [facility] Last Admin: 12/30/20 09:52 Dose: 40 mg Documented by: Escitalopram Oxalate (Escitalopram Oxalate 20 Mg Tablet) 20 mg PO DAILY [facility] Last Admin: 12/30/20 18:32 Dose: 20 mg Documented by: Hydrocortisone (Hydrocortisone 2.5% Crm) 1 applic TOPICAL TID PRN PRN; Protocol PRN Reason: Discomfort Ibuprofen (Ibuprofen 600 Mg Tablet) 600 mg PO Q6H [facility] Last Admin: 12/31/20 06:02 Dose: 600 mg Documented by: Naloxone HCl (Naloxone 0.4 Mg/Ml Syringe) 0.02 mg IV Q1M PRN PRN Reason: RR <10 and pt unresponsive Ondansetron HCl (Ondansetron 4 Mg/2 Ml Vial) 4 mg IV Q4H PRN PRN PRN Reason: Nausea Last Admin: 12/29/20 18:33 Dose: 4 mg Documented by: Oxycodone HCl (Oxycodone 5 Mg Tablet) 5 - 10 mg PO Q4H PRN PRN PRN Reason: Pain Score 4-10 Prochlorperazine Edisylate (Prochlorperazine 10 Mg/2 Ml Vial) 10 mg IV Q6H PRN PRN PRN Reason: NAUSEA Senna/Docusate Sodium (Senna/Docusate Sodium 1 Tablet) 1 - 2 tablet PO DAILY [facility] Last Admin: 12/30/20 09:51 Dose: 1 tablet Documented by: Simethicone (Simethicone 80 Mg Tablet) 80 mg PO PCHS PRN PRN Reason: Indigestion/stomach pain Last Admin: 12/30/20 17:13 Dose: 80 mg Documented by: Sodium Chloride (0.9% Saline Lock 10 Ml Syringe) 5 - 15 ml IV UD PRN PRN Reason: SALINE FLUSH Last Admin: 12/29/20 18:33 Dose: 10 ml Documented by: Zolpidem Tartrate (Zolpidem Tartrate 5 Mg Tablet) 5 mg ORAL QHS PRN PRN PRN Reason: Insomnia Medical Necessity - Tobacco Use Smoking Status: Former smoker Assessment/Plan All Active Problems (This Medical Record has been edited. Action required.) Delivery by elective section (Acute) 37 weeks gestation of (Acute) Pre-eclampsia in third trimester (Acute) Postop day 2 status post repeat section. Pain well controlled on Tylenol and ibuprofen. Rx oxycodone sent as patient is concerned when getting home she will be in more pain with children at home. Bottlefeeding. Okay to discharge home today. Follow-up in 2 weeks for incision check
[2020-12-31 08:39] VITALS: BP 112/68; PULSE 80; RESP 16; TEMP 36.1; O2SAT 98
[2020-12-31] MEDS: Escitalopram Oxalate 20 MG Tablet PO (10:14)
[2020-12-31] MEDS: Enoxaparin 40 MG/0.4 ML Syringe SC (10:15)
[2020-12-31 12:49] VITALS: BP 112/73; PULSE 85; RESP 16; TEMP 36.9; O2SAT 98
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
== END 2020-12-31 13:35 | disposition home or self-care (01) | DRG 540 ==
LOC: WPOUT 08:17 → WP 08:17
PROVIDERS: Admitting Provider Student in an Organized Health Care Education/Training Program; PCP Nurse Practitioner Family; Visit Provider Student in an Organized Health Care Education/Training Program
DX: O99.214 Obesity complicating childbirth (principal); E66.9 Obesity, unspecified; Z3A.37 37 weeks gestation of pregnancy; Z37.0 Single live birth
CPT/HCPCS: 59025; 59050; 85025; 85027; 85461; 86850; 86900; 86901; 87426; 90384; 99218; 99251; J7120; A4216; G0378; G0463; J2405; J2790; J3490

== ENCOUNTER → 2022-02-01 | Outpatient (CLI) | payer MEDICAID, SELFPAY ==
[2022-02-07 16:40] LABS: HPV Reflexed? NOT INDICATED
== END | disposition home or self-care (01) ==
PROVIDERS: PCP Nurse Practitioner Family; Visit Provider Obstetrics & Gynecology
DX: Z12.4 Encounter for screening for malignant neoplasm of cervix (principal)
CPT/HCPCS: 88175; G0145